=== PATIENT | female | born 1945 | race Caucasian/White ===

== ENCOUNTER 2021-06-28 12:38 | Inpatient (IN) | payer MEDICARE, OTHER ==
[~2021-06-28] VITALS: Ht 167.6 cm; Wt 134.7 kg
--- NOTE | 2021-06-28 12:48 | NUR ---
PT BIBRA FROM [facility] SEASONS C/O ABDOMINAL PAIN W/ NAUSEA AND VOMITING W/ NOTED FEVER X 2 DAYS. PT IS TACHYCARDIC AND DRY HEAVING METAL POLISHER. PLACED ON MONITOR SHOWING A FIB W/ RATE IN THE 140'S. PT DENIES CHEST PAIN. LOW GRADE NOTED METAL POLISHER. PT IS AAOX3 AWAITING MD MORENO.
--- NOTE | 2021-06-28 12:50 | NUR ---
DR PALMA AT BEDSIDE FOR EVAL.
[2021-06-28] MEDS ORDERED: ACETAMINOPHEN ES 500 MG TABLET ONE (12:52)
[2021-06-28] MEDS ORDERED: PIPERACILLIN /TAZOBACTAM 3.375 G in IV D5W 50 ML IV ONE (13:00)
[2021-06-28] MEDS ORDERED: VANCOMYCIN 1 GM in IV D5W 250 ML IV ONE (13:00)
[2021-06-28] MEDS ORDERED: IV NS 0.9% 1,000 ML BAG IV ONE (13:00)
[2021-06-28] MEDS ORDERED: ACETAMINOPHEN ES 500 MG TABLET PO ONE (13:00)
--- NOTE | 2021-06-28 13:00 | NUR ---
IV LINE STARTED BLOOD DRAWN AND SENT TO LAB.
[2021-06-28] MEDS ORDERED: VITA1TAB56 PO (13:10)
[2021-06-28] MEDS ORDERED: ACET-868 PO (13:10)
[2021-06-28] MEDS ORDERED: BISA10SU11 RC (13:10)
[2021-06-28] MEDS ORDERED: UBID100C13 PO (13:10)
[2021-06-28] MEDS ORDERED: INSU100V7 SQ (13:10)
[2021-06-28] MEDS ORDERED: PANT40TA2 PO (13:10)
[2021-06-28] MEDS ORDERED: SENN-261 PO (13:10)
[2021-06-28] MEDS ORDERED: MAGN400T26 PO (13:10)
[2021-06-28] MEDS ORDERED: CHOL100062 PO (13:10)
[2021-06-28] MEDS ORDERED: GABA-532 PO ×2 (13:10)
[2021-06-28] MEDS ORDERED: CRAN425C6 PO (13:10)
[2021-06-28] MEDS ORDERED: INSU100V39 SQ (13:10)
[2021-06-28] MEDS ORDERED: DOCU-141 PO ×2 (13:10)
[2021-06-28] MEDS ORDERED: HYDR-3980 PO (13:10)
[2021-06-28] MEDS ORDERED: OMEG-88 PO (13:10)
[2021-06-28] MEDS ORDERED: CALC1TAB30 PO (13:10)
[2021-06-28] MEDS ORDERED: NA P133E RC (13:10)
[2021-06-28] MEDS ORDERED: MAGN400O6 PO (13:10)
[2021-06-28] MEDS ORDERED: LIDO30AD10 TP (13:10)
[2021-06-28] MEDS ORDERED: NORT10CA PO (13:10)
[2021-06-28] MEDS ORDERED: PETR113O TP (13:10)
[2021-06-28] MEDS ORDERED: EVEN500C4 PO (13:10)
[2021-06-28 13:12] LABS: BASOPHILS % (AUTO) 0.3 % (0.0-2.0); HEMATOCRIT 45 % (33-45); HEMOGLOBIN 15.1 g/dL (11.5-14.8); LYMPHOCYTES # (AUTO) 0.7 K/uL (0.8-4.8); LYMPHOCYTES % (AUTO) 4.5 % (20.0-44.0); MEAN CORPUSCULAR HGB CONC 34 g/dl (31.0-36.0); MEAN CORPUSCULAR VOLUME 98 fL (82-100); MONOCYTES # (AUTO) 1.9 K/uL (0.1-1.30); MONOCYTES % (AUTO) 12.7 % (2.0-12.0); NEUTROPHILS # (AUTO) 12.1 K/uL (1.8-8.9); NEUTROPHILS % (AUTO) 82.5 % (43.0-81.0); PLATELET COUNT (AUTO) 212 K/uL (150-450); RED BLOOD CELL COUNT(AUTO) 4.58 MIL/uL (4.0-5.2); WHITE BLOOD COUNT (AUTO) 14.7 K/uL (4.3-11.0)
[2021-06-28 13:20] LABS: CALCIUM, SERUM 8.9 mg/dL (8.5-10.1); CREATININE 1.2 mg/dL (0.6-1.3); POTASSIUM 4.6 mmol/L (3.5-5.1)
[2021-06-28 13:34] LABS: ALBUMIN 2.9 g/dL (3.4-5.0); BILIRUBIN,DIRECT 0.3 mg/dL (0.0-0.2); BILIRUBIN,TOTAL 0.7 mg/dL (0.2-1.0); TOTAL PROTEIN, SERUM 8.3 g/dL (6.4-8.2)
[2021-06-28] MEDS ORDERED: BISACODYL SUPP (10 MG) 10 MG/SUPP.RECT SUPP.RECT RC PRN (14:00)
[2021-06-28] MEDS ORDERED: LIDOCAINE 5% (PATCH) 1 EA PATCH TP PRN (14:00)
[2021-06-28] MEDS ORDERED: MAG HYDROX/AL HYDROX/SIMETH 30 ML UDC PO PRN (14:00)
[2021-06-28] MEDS ORDERED: ENOXAPARIN SODIUM 40 MG/0.4 ML DISP.SYRIN SQ SCH (14:00)
[2021-06-28] MEDS ORDERED: MAGNESIUM HYDROXIDE 30 ML UDC PO PRN (14:00)
[2021-06-28] MEDS ORDERED: ACETAMINOPHEN 325 MG TABLET PO PRN ×2 (14:00)
[2021-06-28] MEDS ORDERED: LABETALOL 20 MG/4 ML VIAL IV PRN (14:00)
[2021-06-28] MEDS ORDERED: DEXTROSE 50%-WATER 50 ML DISP.SYRIN IV PRN (14:00)
[2021-06-28] MEDS ORDERED: Z GUARD REMEDY 2 OZ OINT TP PRN (14:00)
[2021-06-28 14:21] LABS: BILIRUBIN,URINE SMALL (NEGATIVE); COLOR,URINE YELLOW (YELLOW); LEUKOCYTE ESTERASE ,URINE Large (NEGATIVE); NITRITE, URINE Negative (NEGATIVE); PROTEIN,URINE 100 mg/dl (NEGATIVE); UGLUCOSE Negative (NEGATIVE); UROBILINOGEN,URINE 0.2 EU/dL (0.2)
[2021-06-28] MEDS ORDERED: METOPROLOL TARTRATE INJ 5 MG/5 ML AMPUL IVP PRN (14:30)
[2021-06-28] MEDS ORDERED: ENOXAPARIN SODIUM 40 MG/0.4 ML DISP.SYRIN SQ ONE (14:39)
[2021-06-28 14:40] LABS: BACTERIA,URINE Moderate /HPF (None Seen); RBC,URINE 21-50 /HPF (0-2); SQUAMOUS EPITHELIAL CELL,UR 0-2 /HPF (None Seen); WBC,URINE TOO NUMEROUS TO COUN /HPF (0-3)
[2021-06-28] MEDS ORDERED: ASPIRIN EC 325 MG TABLET.DR PO ONE (14:40)
[2021-06-28] MEDS ORDERED: METOPROLOL TARTRATE INJ 5 MG/5 ML AMPUL ONE (14:40)
[2021-06-28] MEDS: ASPIRIN EC 325 MG TABLET.DR PO SCH (14:55)
--- NOTE | 2021-06-28 15:19 | NUR ---
REPORT GIVEN TO SAPNA. PT AWAITING TRANSFER TO FLOOR.
[2021-06-28] MEDS: MEROPENEM 1 G in IV NS 0.9% 100 ML IV SCH ×2 (16:22→20:19)
[2021-06-28] MEDS: HEPARIN INFUSION/D5W 500 ML IV PRN (16:30)
[2021-06-28] MEDS: BLOOD SUGAR DIAGNOSTIC 1 EACH STRIP VI SCH ×2 (16:59→22:46)
[2021-06-28] MEDS ORDERED: NITROFURANTOIN/NITROFURAN MONOHYDRATE 100 MG CAPSULE PO SCH (17:00)
[2021-06-28] MEDS: INSULIN REGULAR, HUMAN 100 UNIT/ML 3 ML VIAL SQ PRN (17:22)
--- NOTE | 2021-06-28 17:57 | NUR ---
RN NOTE PATIENT REFUSING STRAIGHT CATHETER FOR URINE SAMPLE. EDUCATED PATIENT ON IMPORTANCE OF OBTAINING URINE SAMPLE. PATIENT STILL REFUSED.
--- NOTE | 2021-06-28 18:22 | NUR ---
RN NOTE NOTIFIED DR DALY OF HR IN THE 150s, NO NEW ORDERS.
--- NOTE | 2021-06-28 18:35 | NUR ---
RN CLOSING NOTE PATIENT IN BED, RECEIVED ON THE FLOOR FROM THE ER THIS AFTERNOON. A&O X4. R HAND IV IN PLACE. BED LOCKED AND IN LOWEST POSITION, CALL LIGHT WITHIN REACH, ALL SAFETY MEASURES IMPLEMENTED. WILL ENDORSE TO ART OBJECTS SALESPERSON NURSE.
--- NOTE | 2021-06-28 19:20 | NUR ---
RN NOTE RECEIVED PATIENT IN BED RESTING ALERT ORIENTED X4 VERBALLY RESPONSIVE ON 2L OXYGEN VIA NASAL CANNULA O2;96% ON HEPARIN DRIP 1200 UNIT/HR UNTIL NEXT PTT IS 23:00,IV SITE IS ON RIGHT HAND INTACT PATENT,INCONTINENT TO BOWEL/BLADDER SAFETY MEASURE IMPLEMENT CALL LIGHT WITHIN REACH,BED IN LOW POSITION AND LOCKED CONTINUE TO MONITOR.
[2021-06-28 20:00] VITALS: BP 159/115
--- NOTE | 2021-06-28 20:00 | NUR ---
RN NOTE PATIENT IS HR IS 150-152 PER PERVIOUS SHIFT THEY NOTIFIED DR PATI DALY CONTINUE TO MONITOR,TEMPERATURE IS 100.8
[2021-06-28] MEDS: HYDROCODONE/APAP 10/325MG TABLET PO PRN (20:44)
[2021-06-28] MEDS: GABAPENTIN 100 MG CAPSULE PO SCH (22:40)
[2021-06-28] MEDS: DOCUSATE SODIUM 100 MG CAPSULE PO SCH (22:40)
[2021-06-28] MEDS: INSULIN GLARGINE, 100 UNIT/ML CARTRIDGE SQ SCH (22:47)
--- NOTE | 2021-06-28 23:10 | NUR ---
2310 STOPPED HEPARIN INFUSION FOR aPTT 82.7 PER HEPARIN DRIP PROTOCOL.
[2021-06-28] MEDS ORDERED: NORTRIPTYLINE HCL 10 MG CAPSULE ONE (23:13)
[2021-06-28] MEDS: NORTRIPTYLINE HCL 10 MG CAPSULE PO SCH (23:18)
[2021-06-28] MEDS: *INSULIN REGULAR(HUMULIN R)HUM 100 UNIT/ML VIAL SQ PRN (23:33)
[2021-06-29] VITALS (39 sets, daily range): BP systolic 89–138; BP diastolic 43–97
[2021-06-29] MEDS ORDERED: AMIODARONE 150 MG/3 ML VIAL IV ONE ×2 (01:47→01:49)
[2021-06-29] MEDS ORDERED: AMIODARONE 150 MG in IV D5W 100 ML IV ONE (02:00)
[2021-06-29] MEDS ORDERED: AMIODARONE 450 MG in IV D5W 241 ML IV PRN (02:00)
--- NOTE | 2021-06-29 02:21 | NUR ---
RN NOTE PATIENT HR REMAINS 150-[address] MACHINE OPER[address] NOONAN AND RECEIVED ORDER FOR AMIODARONE DRIP NOTED AND CARRIED OUT CONTINUE TO MONITOR.
[2021-06-29 06:34] LABS: BASOPHILS % (AUTO) 0.2 % (0.0-2.0); HEMATOCRIT 42 % (33-45); HEMOGLOBIN 13.9 g/dL (11.5-14.8); LYMPHOCYTES # (AUTO) 0.9 K/uL (0.8-4.8); LYMPHOCYTES % (AUTO) 5.9 % (20.0-44.0); MEAN CORPUSCULAR HGB CONC 33 g/dl (31.0-36.0); MEAN CORPUSCULAR VOLUME 100 fL (82-100); MONOCYTES # (AUTO) 2.7 K/uL (0.1-1.30); MONOCYTES % (AUTO) 18.2 % (2.0-12.0); NEUTROPHILS # (AUTO) 11.3 K/uL (1.8-8.9); NEUTROPHILS % (AUTO) 75.7 % (43.0-81.0); PLATELET COUNT (AUTO) 172 K/uL (150-450); RED BLOOD CELL COUNT(AUTO) 4.17 MIL/uL (4.0-5.2); WHITE BLOOD COUNT (AUTO) 14.9 K/uL (4.3-11.0)
[2021-06-29 06:53] LABS: ALBUMIN 2.3 g/dL (3.4-5.0); BILIRUBIN,TOTAL 0.7 mg/dL (0.2-1.0); CALCIUM, SERUM 8.3 mg/dL (8.5-10.1); CREATININE 1.2 mg/dL (0.6-1.3); MAGNESIUM 2.2 mg/dL (1.8-2.4); PHOSPHORUS 3.7 mg/dL (2.5-4.9); TOTAL PROTEIN, SERUM 7.3 g/dL (6.4-8.2)
[2021-06-29 06:58] LABS: THYROID STIMULATING HORMONE 0.36 uIU/mL (0.358-3.74)
--- NOTE | 2021-06-29 07:00 | NUR ---
RN NOTES 0700 - APTT 64. NO CHANGE TO HEPARIN DRIP RATE.
--- NOTE | 2021-06-29 07:22 | NUR ---
RN NOTE PATIENT REMAINS ON ALERT ORIENTEDX4 VERBALLY RESPONSIVE ON 4L OXYGEN VIA NASAL CANNULA, O2:99% ON HEPARIN DRIP 1000 UNIT/HR PTT DRAWN STILL IS PENDING,ON AMIODARONE DRIP 1MG,HR 150 AFIB ALL DUE MEDS GIVEN HEAD OF THE BED ELEVATED REPOSITIONED EVERY 2 HOURS KEPT CLEAN AND DRY ALL THE TIME ALL NEEDS MET,ENDORSE NEXT COMING SHIFT FOR CONTINUATION OF CARE.
--- NOTE | 2021-06-29 07:30 | NUR ---
BLAIR RN AM NOTE RECEIVED PATIENT IN BED, AWAKE, ALERT X 4, ON 4L O2 NASAL CANULA, O2 SAT 96%, RESPIRATION UNLABORED, AFIB HR 147 ON MONITOR, MD AWARE, WAITING FOR DR. ARGUETA. DENIES PAIN OR DISCOMFORT AT THIS TIME, ONGOING AMIODARONE DRIP AT 1MG/MIN [33.3 ML/HR] TO LEFT HAND. SITE CLEAR. ON HEPARIN DRIP 1000 UNIT/HR UNTIL NEXT PTT IS 0500. ON RIGHT HAND INTACT PATENT,INCONTINENT TO BOWEL/BLADDER SEE NURSING FLOWSHEET FOR SKIN ISSUES. FOR WOUND CARE CONSULT. SAFETY MEASURE IMPLEMENT CALL LIGHT WITHIN REACH,BED IN LOW POSITION AND LOCKED CONTINUE TO MONITOR.
--- NOTE | 2021-06-29 08:30 | NUR ---
RN NOTES AMIODARONE DRIP RATE CHANGED TO 0.5 MG/MIN [16.6 ML/HR] X 16 HOURS.
[2021-06-29] MEDS: PANTOPRAZOLE 40 MG TABLET.DR PO SCH (08:36)
[2021-06-29] MEDS: BLOOD SUGAR DIAGNOSTIC 1 EACH STRIP VI SCH ×4 (08:36→21:45)
[2021-06-29] MEDS ORDERED: EVENING PRIMROSE OIL 500 MG PO SCH (09:00)
[2021-06-29] MEDS: INSULIN REGULAR, HUMAN 100 UNIT/ML 3 ML VIAL SQ PRN ×3 (09:05→17:28)
[2021-06-29] MEDS: CHOLECALCIFEROL 1,000 UNIT TABLET (VIT D3) PO SCH (09:08)
[2021-06-29] MEDS: GABAPENTIN 100 MG CAPSULE PO SCH ×3 (09:08→21:06)
[2021-06-29] MEDS: MEROPENEM 1 G in IV NS 0.9% 100 ML IV SCH ×2 (09:08→21:04)
[2021-06-29] MEDS: DOCUSATE SODIUM 100 MG CAPSULE PO SCH ×2 (09:09→21:05)
[2021-06-29] MEDS: ASPIRIN EC 325 MG TABLET.DR PO SCH (09:10)
--- NOTE | 2021-06-29 09:30 | NUR ---
RN NOTES DUE MEDS GIVEN
[2021-06-29] MEDS: GLUCERNA SHAKE 237 ML CAN PO SCH (10:01)
[2021-06-29 10:06] LABS: LYMPHOCYTES % (MANUAL) 4 % (16-48); MONOCYTES % (MANUAL) 15 % (0-11.0); NEUTROPHILS % (MANUAL) 81 (42-76)
--- NOTE | 2021-06-29 10:54 | NUR ---
RN CATALINA ARGUETA AT BEDSIDE.NEW ORDERS DC AMIODARONE DRIP AND CHANGE TO CARDIZEM DRIP TITRATE, SEND TO ICU. CHARGE NURSE AWARE. NURSING CIGARETTE MACHINE FILLER INFORMED FOR ICU BED.
[2021-06-29] MEDS: METOPROLOL TARTRATE 25 MG TABLET PO SCH ×2 (11:28→21:05)
[2021-06-29] MEDS: FUROSEMIDE 20 MG/2 ML VIAL IV SCH ×2 (11:28→16:02)
--- NOTE | 2021-06-29 11:35 | NUR ---
RN NOTES PATIENT TRANSFERRED TO ICU 254. BEDSIDE REPORT GIVEN TO ANN WESTBROOK.
--- NOTE | 2021-06-29 12:00 | NUR ---
[employer] FARMER FRUIT CROPS NOTE PATIENT TRANSFERRED TO ICU ALERT ORIENTED , ON TELE MONITOR AFIB HR 152 , NO C\O CHEST PAIN , RT HAND HL INTACT AND ON HEPARIN DRIP ORDERED, LT HAND IB HL IS NOT WORKING WELL BED IN LOWEST AND LOCKED POSITION SKIN WARM BUT VERY PERSPIRING , COMFORT MEASURE PROVIDED
[2021-06-29] MEDS: DILTIAZEM HCL IV 125 MG in IV NS 0.9% 100 ML IV PRN ×2 (12:21→23:27)
[2021-06-29] MEDS ORDERED: DILTIAZEM HCL 50 MG IV IV ONE (12:30)
--- NOTE | 2021-06-29 13:00 | NUR ---
FRUIT HARVEST MACHINE OPERATOR NOTE UNABLE TO START CARDIZEM DRIP DUE TO UNABLE TO INSERT IV HL , CHARGE NURSE AND NURSING LEHR ATTENDANT NOTIFIED , CALLED FOR MID LINE NURSE TO INSERT , WILL F\U
--- NOTE | 2021-06-29 13:30 | NUR ---
[place] HISTORY PROFESSOR NOTE CALLED TO DR BAUTISTA RESPIRATORY TECH NOTIFIED THAT PATIENT ON HEPARIN DRIP AND LOVENOX SQ ,ORDERED STOP LOVENOX , ORDER CARRIED OUT
[2021-06-29] MEDS: HEPARIN INFUSION/D5W 500 ML IV PRN (13:45)
--- NOTE | 2021-06-29 14:00 | NUR ---
agriculture internship note dr Leoncio Coulter at bedside inserted mid line double lumen on lt upper arm .tim start Cardizem soon
--- NOTE | 2021-06-29 14:25 | NUR ---
ASPHALT STILL OPERATOR NOTE STARTED CARDIZEM DRIP ORDERED
--- NOTE | 2021-06-29 14:58 | NUR ---
METAL BONDING WORKER NOTE HR AFIB 129 , PER DR ORDER OK TO INCREASE CARDIZEM DRIP UP TO 10 MG -HOUR , WILL MONITOR
--- NOTE | 2021-06-29 18:33 | NUR ---
SHOPPER INSIGHTS MANAGER NOTE HR STILL AFIB 122 NO C\O CHEST PAIN ,NO SOB NOTED, TITRATED CARDIZEM DRIP AT 15 MG\HOUR PER DR ORDER AND PROTOCOL , ON HEPARIN DRIP AT 1000 UNIT PER HOUR ORDERED AND PROTOCOL WILL DO PTT IN AM , REUSED TI EAT DINNER AT THIS TIME SAYING WILL EAT LATTER, LT UPPER ARM DOUBLE LUMEN MID LINE IN PLACE AND FLUSHED WELL , BED IN LOWEST AND LOCKED POSITION , CALL LIGHT WITHIN REACH, WILL CONT TO MONITOR
--- NOTE | 2021-06-29 19:30 | NUR ---
RN OPENING NOTES: RECEIVED PT A/OX4 IN BED IN NO S/SX OF ACUTE DISTRESS AT THIS TIME. NO SOB NOTED. PATIENT'S BREATHING IS EVEN AND UNLABORED. PATIENT IS ON 4L OF OXYGEN VIA NC; TOLERATING WELL. PATIENT ON TELE MONITORING READING AFLUTTER HR IS @120s AT THE TIME OF RECEIVED. PATIENT ON CCHO DIET; TOLERATES WELL. NOTED IV SITE ON L UA MIDLINE 2 LUMEN AND R HAND #20; BOTH PATENT, INTACT AND FLUSHING WELL; NO S/S OF INFECTION OR INFILTRATION. PT HAS A RUNNING HEPARIN DRIP @1000UNITS/HR (20MLS/HR) PER NON ACS PROTOCOL ORDERED. ALSO AT THE TIME OF RECEIVED PT HAS A RUNNING CARDIZEM DRIP @15MG/HR (15MLS/HR) MONITORED AND TITRATED PER PROTOCOL. SAFETY MEASURES HAVE BEEN PROVIDED AND IMPLEMENTED. PATIENT BED ALARM IS ON. HEAD OF BED ELEVATED. BED IS LOCKED, IN LOWEST POSITION AND SIDE RAILS UP. CALL LIGHT WITHIN REACH OF THE PATIENT. APPLICABLE ISOLATION PRECAUTIONS IN PLACE. WILL CONTINUE TO MONITOR AND REASSESS FOR ANY CHANGES AND WILL CARRY OUT ANY ONGOING AND ACTIVE MD ORDER.
[2021-06-29] MEDS: NORTRIPTYLINE HCL 10 MG CAPSULE PO SCH (21:06)
[2021-06-29] MEDS: INSULIN GLARGINE, 100 UNIT/ML CARTRIDGE SQ SCH (21:38)
[2021-06-29] MEDS: *INSULIN REGULAR(HUMULIN R)HUM 100 UNIT/ML VIAL SQ PRN (21:43)
[2021-06-30] VITALS (48 sets, daily range): BP systolic 109–162; BP diastolic 43–94
--- NOTE | 2021-06-30 | NUR ---
RN NOTES PATIENT REMAINED TO BE IN NO SIGNS OF ACUTE RESPIRATORY DISTRESS , VITAL SIGNS WNL AT THIS TIME. WILL CONTINUE TO MONITOR AND REASSESS FOR ANY CHANGES THROUGHOUT THE SHIFT.
--- NOTE | 2021-06-30 04:00 | NUR ---
RN NOTES NO NOTED CHANGES IN PATIENT CONDITION AT THIS TIME; PATIENT VITALS STABLE, NO SIGNS OF ACUTE RESPIRATORY DISTRESS. AM PATIENT CARE RENDERED.WILL CONTINUE TO MONITOR AND REASSESS FOR ANY CHANGES THROUGHOUT THE SHIFT.
[2021-06-30 04:25] LABS: BASOPHILS % (AUTO) 0.2 % (0.0-2.0); EOSINOPHILS % (AUTO) 0.9 % (0.0-6.0); HEMATOCRIT 41 % (33-45); LYMPHOCYTES # (AUTO) 1.2 K/uL (0.8-4.8); LYMPHOCYTES % (AUTO) 12.1 % (20.0-44.0); MEAN CORPUSCULAR HGB CONC 34 g/dl (31.0-36.0); MEAN CORPUSCULAR VOLUME 98 fL (82-100); MONOCYTES # (AUTO) 2.1 K/uL (0.1-1.30); MONOCYTES % (AUTO) 21.9 % (2.0-12.0); NEUTROPHILS # (AUTO) 6.3 K/uL (1.8-8.9); NEUTROPHILS % (AUTO) 64.9 % (43.0-81.0); PLATELET COUNT (AUTO) 202 K/uL (150-450); RED BLOOD CELL COUNT(AUTO) 4.21 MIL/uL (4.0-5.2); WHITE BLOOD COUNT (AUTO) 9.6 K/uL (4.3-11.0)
[2021-06-30 04:48] LABS: BAND % (MANUAL) 5 % (0.0-5.0); NEUTROPHILS % (MANUAL) 61 (42-76)
[2021-06-30 04:49] LABS: LYMPHOCYTES % (MANUAL) 16 % (16-48); MONOCYTES % (MANUAL) 18 % (0-11.0)
[2021-06-30 04:53] LABS: ALANINE AMINOTRANSFERASE 38 U/L (12-78); ALBUMIN 2.4 g/dL (3.4-5.0); ALKALINE PHOSPHATASE 67 U/L (46-116); ASPARTATE AMINOTRANSFERASE 34 U/L (15-37); BILIRUBIN,TOTAL 0.4 mg/dL (0.2-1.0); CALCIUM, SERUM 8.4 mg/dL (8.5-10.1); CARBON DIOXIDE 27 mmol/L (21-32); CHLORIDE 98 mmol/L (98-107); CREATININE 1.1 mg/dL (0.6-1.3); GLUCOSE 149 mg/dL (74-106); MAGNESIUM 2.1 mg/dL (1.8-2.4); PHOSPHORUS 3.6 mg/dL (2.5-4.9); SODIUM SERUM 133 mmol/L (136-145); TOTAL PROTEIN, SERUM 7.2 g/dL (6.4-8.2); UREA NITROGEN, BLOOD 34 mg/dL (7-18)
[2021-06-30] MEDS: DILTIAZEM HCL IV 125 MG in IV NS 0.9% 100 ML IV PRN ×2 (05:22→06:24)
--- NOTE | 2021-06-30 05:51 | NUR ---
RN NOTES APTT: 34.8; PER WEIGHT BASED HEPARIN PROTOCO (NON ACS) BY THE CRITERIA OF : >95KG, BOLUS 6000U & INCREASE RATE BY 300 U/HR TOTAL OF 1300U/HR TO BE GIVEN. REPEAT APTT AFTER 6HOURS UPON ADJUSTMENT. TAX SERVICES MANAGER MADE AWARE. WILL ENDORSE CHANGES TO AM SHIFT.
[2021-06-30] MEDS ORDERED: HEPARIN SODIUM, PORCINE 5000 UNITS/1 ML VIAL IV ONE (06:00)
--- NOTE | 2021-06-30 06:50 | NUR ---
RN CLOSING NOTE: PATIENT REMAINS IN ROOM IN NO SIGNS OF RESPIRATORY DISTRESS, PATIENT STILL ON 4L OF O2 VIA NC;TOLERATING WELL SATURATING @ >90% SP02. SAFETY MEASURES IMPLEMENTED, BED IN LOWEST POSITION, LOCKED, SIDE RAILS UP, CALL LIGHT WITHIN REACH. ALL NEEDS AND ORDERS ADDRESSED DURING THE SHIFT. IV ACCESS MAINTAINED INTACT, SECURED AND FLUSHING WELL. ALL DUE MEDS GIVEN ORDERED & SCHEDULED ; PATIENT TOLERATED WELL. STILL WITH ONGOING DRIP FOLLOWS: HEPARIN DRIP @1300UNITS/HR PER NON ACS PROTOCOL ORDERED AND CARDIZEM DRIP @15MG/HR (15MLS/HR) BOTH RUNNING, MONITORED AND ADJUSTED PER PROTOCOL. PATIENT KEPT CLEAN AND COMFORTABLE WITHIN THE SHIFT. PATIENT ENDORSED TO INCOMING SHIFT RN WITH STABLE VITAL SIGN AND FOR CONTINUITY OF CARE.
--- NOTE | 2021-06-30 07:30 | NUR ---
RN NOTE PATIENT OBSERVED ASLEEP IN BRED, ON O2 VIA NC @2LPM BREATHING EVEN AND UNLABORED, O2 SAT OF 98%, ON TELE MONITOR A-FIB/AFLUTTER NOTED, ON CARDIZEM DRIP RUNNING AT 15MG/HR, HEPARIN DRIP AT 1300UNITS/HR NEXT APTT IS AT 12NOON IV INFUSING WELL, BED WHEELS LOCK, CALL LIGHT WITHIN REACH, SAFETY MEASURE OBSERVED CALL LIGHT WITHIN REACH.
--- NOTE | 2021-06-30 07:50 | NUR ---
RN NOTE ASSISTED PATIENT TO REPOSITION AT BED, PATIENT DOES NOT WANT TO EAT BREAKFAST AT THIS TIME, MEDICATION GIVEN ORDERED.
[2021-06-30] MEDS: FUROSEMIDE 20 MG/2 ML VIAL IV SCH ×2 (08:11→17:19)
[2021-06-30] MEDS: PANTOPRAZOLE 40 MG TABLET.DR PO SCH (08:12)
[2021-06-30] MEDS: DOCUSATE SODIUM 100 MG CAPSULE PO SCH ×2 (08:12→21:02)
[2021-06-30] MEDS: CHOLECALCIFEROL 1,000 UNIT TABLET (VIT D3) PO SCH (08:12)
[2021-06-30] MEDS: GABAPENTIN 100 MG CAPSULE PO SCH ×3 (08:12→21:02)
[2021-06-30] MEDS: METOPROLOL TARTRATE 25 MG TABLET PO SCH ×2 (08:13→20:48)
[2021-06-30] MEDS: BLOOD SUGAR DIAGNOSTIC 1 EACH STRIP VI SCH ×4 (08:13→21:17)
[2021-06-30] MEDS: MEROPENEM 1 G in IV NS 0.9% 100 ML IV SCH ×2 (08:26→20:47)
[2021-06-30] MEDS: *INSULIN REGULAR(HUMULIN R)HUM 100 UNIT/ML VIAL SQ PRN ×2 (08:26→21:28)
[2021-06-30] MEDS: GLUCERNA SHAKE 237 ML CAN PO SCH (08:30)
[2021-06-30] MEDS: ASPIRIN EC 81 MG TABLET.DR PO SCH (09:29)
--- NOTE | 2021-06-30 11:00 | NUR ---
RN NOTE PATIENT SEEN BY DR. MICHAEL, NOTIFIED MD OF PATIENT SODIUM LEVEL OF 133, NO NEW ORDER AT THIS TIME.
[2021-06-30] MEDS ORDERED: DIGOXIN INJ 0.5 MG/2 ML AMPUL IV ONE (12:00)
--- NOTE | 2021-06-30 12:00 | NUR ---
RN NOTE PATIENT CONVERTED FROM A-FIB/AFLUTTER TO SR, DISCONTINUE HEPARIN AND CARDIZEM PER DR. ARGUETA.
[2021-06-30] MEDS: ENOXAPARIN SODIUM 120 MG/0.8 ML DISP.SYRIN SQ SCH ×2 (12:31→20:54)
[2021-06-30] MEDS: INSULIN REGULAR, HUMAN 100 UNIT/ML 3 ML VIAL SQ PRN ×2 (12:42→17:17)
[2021-06-30] MEDS: hydrALAZINE HCL IV 20 MG VIAL IV PRN ×2 (15:05→22:46)
--- NOTE | 2021-06-30 17:27 | NUR ---
RN NOTE PATIENT ADL CARE DONE WITH TWO PERSON ASSIST.
--- NOTE | 2021-06-30 19:11 | NUR ---
RN NOTE DR. ARGUETA NOTIFIED THAT PATIENT CONVERTED TO AFLUTTER. WAITING FURTHER ORDER ENDORSE TO NOC SHIFT.
--- NOTE | 2021-06-30 19:12 | NUR ---
RN NOTE PATIENT OBSERVED ASLEEP IN BRED, ON O2 VIA NC @2LPM BREATHING EVEN AND UNLABORED, O2 SAT OF 98%, ON TELE MONITOR AFLUTTER NOTED MD NOTIFIED, BED WHEELS LOCK, CALL LIGHT WITHIN REACH, SAFETY MEASURE OBSERVED CALL LIGHT WITHIN REACH. WILL ENDORSE TO NOC SHIFT.
--- NOTE | 2021-06-30 19:30 | NUR ---
RN OPENING NOTES: RECEIVED PT A/OX4 IN BED IN NO S/SX OF ACUTE DISTRESS AT THIS TIME. NO SOB NOTED. PATIENT'S BREATHING IS EVEN AND UNLABORED. PATIENT IS ON 4L OF OXYGEN VIA NC; TOLERATING WELL. PATIENT ON TELE MONITORING READING AFLUTTER HR IS @100s AT THE TIME OF RECEIVED. PATIENT ON CCHO DIET; TOLERATES WELL. NOTED IV SITE ON L UA MIDLINE 2 LUMEN PATENT, INTACT AND FLUSHING WELL; NO S/S OF INFECTION OR INFILTRATION. SAFETY MEASURES HAVE BEEN PROVIDED AND IMPLEMENTED. PATIENT BED ALARM IS ON. HEAD OF BED ELEVATED. BED IS LOCKED, IN LOWEST POSITION AND SIDE RAILS UP. CALL LIGHT WITHIN REACH OF THE PATIENT. APPLICABLE ISOLATION PRECAUTIONS IN PLACE. WILL CONTINUE TO MONITOR AND REASSESS FOR ANY CHANGES AND WILL CARRY OUT ANY ONGOING AND ACTIVE MD ORDER.
--- NOTE | 2021-06-30 20:33 | NUR ---
RN NOTES NO NEW ORDERS FROM DR. ARGUETA; REGARDING THE INFORMED INFO FROM AM SHIFT ABOUT PT CONVERTING TO AFLUTTER AT THE END OF SHIFT. CURRENT HR AT 90s. RHYTHM SR WITH INVERTED T-WAVES. MD ACKNOWLEDGED. SAMPLE MAKER MADE AWARE.
[2021-06-30] MEDS: ONDANSETRON HCL/PF 4 MG/2 ML VIAL IVP PRN (20:55)
[2021-06-30] MEDS: NORTRIPTYLINE HCL 10 MG CAPSULE PO SCH (21:02)
[2021-06-30] MEDS: INSULIN GLARGINE, 100 UNIT/ML CARTRIDGE SQ SCH (21:28)
--- NOTE | 2021-06-30 22:45 | NUR ---
RN NOTES NOTED PT'S SBP GOING >160; PRN HYDRALAZINE GIVEN PER INDICATION. WILL CONTINUE TO MONITOR AND ASSESS THROUGHOUT THE SHIFT. WILL REEVALUATE IN 30-45MINS. IRRIGATOR SPRINKLING SYSTEM MADE AWARE. Addendum: 06/30/21 at 2344 by SHERRON ENCARNACION RN @2330- PT'S BP IS AT 138/76 HR IS 99; WILL CONTINUE TO MONITOR AND ASSESS THROUGHOUT THE SHIFT.
[2021-07-01] VITALS (34 sets, daily range): BP systolic 119–164; BP diastolic 65–99
[2021-07-01 04:32] LABS: BASOPHILS % (AUTO) 0.4 % (0.0-2.0); EOSINOPHILS % (AUTO) 1.5 % (0.0-6.0); HEMATOCRIT 42 % (33-45); LYMPHOCYTES # (AUTO) 1.1 K/uL (0.8-4.8); LYMPHOCYTES % (AUTO) 13.1 % (20.0-44.0); MEAN CORPUSCULAR HGB CONC 34 g/dl (31.0-36.0); MEAN CORPUSCULAR VOLUME 98 fL (82-100); MONOCYTES # (AUTO) 1.5 K/uL (0.1-1.30); MONOCYTES % (AUTO) 18.7 % (2.0-12.0); NEUTROPHILS # (AUTO) 5.4 K/uL (1.8-8.9); NEUTROPHILS % (AUTO) 66.3 % (43.0-81.0); PLATELET COUNT (AUTO) 251 K/uL (150-450); RED BLOOD CELL COUNT(AUTO) 4.24 MIL/uL (4.0-5.2); WHITE BLOOD COUNT (AUTO) 8.1 K/uL (4.3-11.0)
[2021-07-01 04:45] LABS: ALANINE AMINOTRANSFERASE 50 U/L (12-78); ALBUMIN 2.4 g/dL (3.4-5.0); ALKALINE PHOSPHATASE 71 U/L (46-116); ASPARTATE AMINOTRANSFERASE 43 U/L (15-37); BILIRUBIN,TOTAL 0.4 mg/dL (0.2-1.0); CALCIUM, SERUM 8.5 mg/dL (8.5-10.1); CARBON DIOXIDE 30 mmol/L (21-32); CHLORIDE 98 mmol/L (98-107); CREATININE 0.8 mg/dL (0.6-1.3); GLUCOSE 150 mg/dL (74-106); MAGNESIUM 1.9 mg/dL (1.8-2.4); PHOSPHORUS 3.1 mg/dL (2.5-4.9); POTASSIUM 3.7 mmol/L (3.5-5.1); SODIUM SERUM 134 mmol/L (136-145); TOTAL PROTEIN, SERUM 7.4 g/dL (6.4-8.2); UREA NITROGEN, BLOOD 26 mg/dL (7-18)
[2021-07-01 05:46] LABS: BAND % (MANUAL) 2 % (0.0-5.0); EOSINOPHILS % (MANUAL) 2 % (0-4); LYMPHOCYTES % (MANUAL) 10 % (16-48); MONOCYTES % (MANUAL) 21 % (0-11.0); NEUTROPHILS % (MANUAL) 64 (42-76); REACTIVE LYMPHOCYTES 1 % (0-0)
--- NOTE | 2021-07-01 06:42 | NUR ---
RN CLOSING NOTE: PATIENT REMAINS IN ROOM IN NO SIGNS OF RESPIRATORY DISTRESS, PATIENT STILL ON 4L OF O2 VIA NC;TOLERATING WELL SATURATING @ >95% SP02. SAFETY MEASURES IMPLEMENTED, BED IN LOWEST POSITION, LOCKED, SIDE RAILS UP, CALL LIGHT WITHIN REACH. ALL NEEDS AND ORDERS ADDRESSED DURING THE SHIFT. IV ACCESS MAINTAINED INTACT, SECURED AND FLUSHING WELL. ALL DUE MEDS GIVEN ORDERED & SCHEDULED ; PATIENT TOLERATED WELL. PATIENT KEPT CLEAN & COMFORTABLE WITHIN THE SHIFT. PATIENT ENDORSED TO INCOMING SHIFT RN WITH STABLE VITAL SIGN AND FOR CONTINUITY OF CARE.
--- NOTE | 2021-07-01 07:30 | NUR ---
WORKERS COMPENSATION EXAMINER OPENING NOTES Patient received in bed asleep, on o2 4lpm via n/c with 02 sat of 98%. Noted with left upper arm midline saline lock. HOB kept elevated. Will continue to monitor. Call light with in reach. Bed is in lowest and locked position.
[2021-07-01] MEDS: BLOOD SUGAR DIAGNOSTIC 1 EACH STRIP VI SCH ×4 (07:54→22:03)
[2021-07-01] MEDS: INSULIN REGULAR, HUMAN 100 UNIT/ML 3 ML VIAL SQ PRN ×2 (07:55→18:14)
[2021-07-01] MEDS: DOCUSATE SODIUM 100 MG CAPSULE PO SCH ×2 (08:52→21:37)
[2021-07-01] MEDS: CHOLECALCIFEROL 1,000 UNIT TABLET (VIT D3) PO SCH (08:52)
[2021-07-01] MEDS: GABAPENTIN 100 MG CAPSULE PO SCH ×3 (08:52→21:45)
[2021-07-01] MEDS: PANTOPRAZOLE 40 MG TABLET.DR PO SCH (08:52)
[2021-07-01] MEDS: ASPIRIN EC 81 MG TABLET.DR PO SCH (08:52)
[2021-07-01] MEDS: FUROSEMIDE 20 MG/2 ML VIAL IV SCH ×2 (08:52→17:36)
[2021-07-01] MEDS: METOPROLOL TARTRATE 25 MG TABLET PO SCH ×2 (08:53→21:46)
[2021-07-01] MEDS: MEROPENEM 1 G in IV NS 0.9% 100 ML IV SCH ×2 (08:53→21:36)
[2021-07-01] MEDS: GLUCERNA SHAKE 237 ML CAN PO SCH (09:08)
[2021-07-01] MEDS: ENOXAPARIN SODIUM 120 MG/0.8 ML DISP.SYRIN SQ SCH ×2 (09:15→21:47)
--- NOTE | 2021-07-01 10:58 | NUR ---
Converted to afib at 1052 am.
--- NOTE | 2021-07-01 11:00 | NUR ---
Patient's cardiac rhytm converted to afib. Dr Teagan zamora.
[2021-07-01] MEDS ORDERED: AMIODARONE 150 MG in IV D5W 100 ML IV ONE (11:30)
--- NOTE | 2021-07-01 11:30 | NUR ---
Started bolus and patient converted to Sinus. Bolus running. No c/o chest pain.
--- NOTE | 2021-07-01 11:52 | NUR ---
Per dr hussein to start amio drip for next 6 hour and then decrease it to half dose for next 18 hours. Patient started amio drip running 33.333 ml/hour. Sinus rhytm noted.
[2021-07-01] MEDS: AMIODARONE 450 MG in IV D5W 241 ML IV PRN ×2 (11:53→18:32)
--- NOTE | 2021-07-01 13:00 | NUR ---
Patient refused her lunch and insulin not given due to patient not eating.
--- NOTE | 2021-07-01 16:00 | NUR ---
Snowden cath inserted per MD Wilson orders to monitor intake and output
--- NOTE | 2021-07-01 18:00 | NUR ---
Amio drip decreased to 16.66 ml/hour after six hours. Patient noted with no s/s of caridac distress. Eating dinner.
--- NOTE | 2021-07-01 19:07 | NUR ---
DECALER CLOSING NOTES Patient in bed awake , on o2 4lpm via n/c with 02 sat of 99%. Noted with left upper arm midline running amio drip at 26.66 ml/hour or 0.5 mg. Patient currently showing sinus rhytm with PAC on tele monitor. Snowden cath intact and hanging to gravity with clear yellow urine and output of 1400 cc during shift.. HOB kept elevated. Will continue to monitor. Call light with in reach. Bed is in lowest and locked position.Will endorse to next shift for VALERIE.
--- NOTE | 2021-07-01 19:35 | NUR ---
RN NOTES RECEIVED PATIENT AWAKE RESTING ON BED. BREATHING EVEN AND UNLABORED. ON O2 4LPM VIA NC SATURATION 93%. PATIENT IS AOX4 VERBALIZING CONCERN. SR WITH INVERTED T WAVE ON MONITOR. DENIES ANY CHEST PAIN OR DIZZINESS. PATIENT IS C/O PAIN ON HER BACK PER PATIENT SHE HAS CHRONIC PAIN. ENCOURAGED TO REPOSITION WHILE ON BED NOT EFFECTIVE AT THIS TIME, CHAD PRIMITIVOCLAUDINE REST IN THE SAME POSITION. IV SITE ON LEFT UPPER ARM MIDLINE INTACT RUNNING WITH AMIODARONE DRIP AT16.667 ML/HR INTACT AND PATENT. KENDRICK CATH KEPT IN PLACED AND SECURED. OFF FROM THE FLOOR. KEPT PT CLEAN AND COMFORTABLE IN BED. CALL LIGHT INSTRUCTED TO USED FOR ASSISTANCE. WILL CONTINUE TO MONITOR.
[2021-07-01] MEDS: HYDROCODONE/APAP 10/325MG TABLET PO PRN (19:46)
[2021-07-01] MEDS: NORTRIPTYLINE HCL 10 MG CAPSULE PO SCH (21:45)
--- NOTE | 2021-07-01 22:00 | NUR ---
RN NOTES ENCOURAGED AND OFFERED TO TURN AND REPOSITION WHILE ON BED. PATIENT REFUSED TO GET TURN STATED THAT SHE DIDN'T FEEL COMFORTABLE BECAUSE OF HER BOTH HIPS. RISK AND BENEFITS EXPLAINED PATIENT IS WELL AWARE BUT DOESN'T WANT TO GET TURN. PATIENT IS AOX3. ENCOURAGED TO CALL WHEN READY TO GET TURN. ALL DUE MEDS ADMINISTERED AND TOLERATED WELL.
[2021-07-01] MEDS: INSULIN GLARGINE, 100 UNIT/ML CARTRIDGE SQ SCH (22:01)
[2021-07-01] MEDS: *INSULIN REGULAR(HUMULIN R)HUM 100 UNIT/ML VIAL SQ PRN (22:02)
[2021-07-02] VITALS (33 sets, daily range): BP systolic 110–140; BP diastolic 66–85
[2021-07-02 04:22] LABS: BASOPHILS % (AUTO) 0.5 % (0.0-2.0); EOSINOPHILS % (AUTO) 2.4 % (0.0-6.0); HEMATOCRIT 40 % (33-45); HEMOGLOBIN 13.5 g/dL (11.5-14.8); LYMPHOCYTES # (AUTO) 1.4 K/uL (0.8-4.8); LYMPHOCYTES % (AUTO) 19.2 % (20.0-44.0); MEAN CORPUSCULAR HGB CONC 34 g/dl (31.0-36.0); MEAN CORPUSCULAR VOLUME 98 fL (82-100); MONOCYTES # (AUTO) 1.4 K/uL (0.1-1.30); MONOCYTES % (AUTO) 18.3 % (2.0-12.0); NEUTROPHILS # (AUTO) 4.4 K/uL (1.8-8.9); NEUTROPHILS % (AUTO) 59.6 % (43.0-81.0); PLATELET COUNT (AUTO) 274 K/uL (150-450); RED BLOOD CELL COUNT(AUTO) 4.11 MIL/uL (4.0-5.2); WHITE BLOOD COUNT (AUTO) 7.5 K/uL (4.3-11.0)
[2021-07-02 04:37] LABS: ALBUMIN 2.3 g/dL (3.4-5.0); BILIRUBIN,TOTAL 0.4 mg/dL (0.2-1.0); CALCIUM, SERUM 8.3 mg/dL (8.5-10.1); CREATININE 0.9 mg/dL (0.6-1.3); MAGNESIUM 2.1 mg/dL (1.8-2.4); PHOSPHORUS 3.6 mg/dL (2.5-4.9); POTASSIUM 3.7 mmol/L (3.5-5.1)
[2021-07-02 05:26] LABS: EOSINOPHILS % (MANUAL) 4 % (0-4); LYMPHOCYTES % (MANUAL) 14 % (16-48); MONOCYTES % (MANUAL) 17 % (0-11.0); NEUTROPHILS % (MANUAL) 65 (42-76)
--- NOTE | 2021-07-02 06:42 | NUR ---
RN NOTES PATIENT ASLEEP WELL. NO SOB OR RESP DISTRESS TOLERATED O2 4LPM VIA NC. SATURATION 98-100%. AFEBRILE. VSS. SINUS RHYTHM WITH INVERTED T WAVE ON MONITOR. CONTINUE ON AMIODARONE DRIP AT 0.5 MG/MIN WILL END AT 12NOON. IV SITE REMAINED INTACT AND PATENT. NO SIGNIFICANT CHANGES NOTED. PAIN MEDICINE EFFECTIVE. KEPT PT CLEAN AND COMFORTABLE IN BED. CALL LIGHT PROMPTLY ATTENDED. KENDRICK CATH DRAINED WELL WITH GOOD URINE OUTPUT. WILL CONTINUE POC WILL ENDORSED TO AM NURSE FOR CONTINUITY OF CARE.
--- NOTE | 2021-07-02 07:30 | NUR ---
RN NOTES PT FOUND SLEEPING IN SEMI FOWLERS POSITION DISPLAYING NO S/S OF DISTRESS, FLACC = 0 AND BREATHING IS EVEN AND UNLABORED ON 4L O2 NC. PT ON THE MONITOR READING INVERTED T WAVES. AMIODARONE DROP RUNNING WITHOUT INTERRUPTION. PICC IS PATIENT AND INTACT. KENDRICK CATH PLACED BELOW PATIENT DRAINING BY GRAVITY, CATH/TUBE INTACT AND ANCHORED. PT REQUESTED POLYGRAPH TECHNICIAN CLEAN PT BEFORE SHE LEAVES. VSS, WILL CONTINUE TO TREAT AND MONITOR THROUGHOUT SHIFT. SAFETY MEASURES IN PLACE, BED LOCKED AND IN LOWEST POSITION, SIDE RAILS UPX2, CALL LIGHT WITHIN REACH, PT WILL BE INSTRUCTED TO CALL FOR ASSISTANCE.
[2021-07-02] MEDS: BLOOD SUGAR DIAGNOSTIC 1 EACH STRIP VI SCH ×4 (08:18→21:47)
[2021-07-02] MEDS: PANTOPRAZOLE 40 MG TABLET.DR PO SCH (08:21)
[2021-07-02] MEDS: *INSULIN REGULAR(HUMULIN R)HUM 100 UNIT/ML VIAL SQ PRN ×2 (08:23→21:53)
[2021-07-02] MEDS: GLUCERNA SHAKE 237 ML CAN PO SCH (08:36)
[2021-07-02] MEDS: MEROPENEM 1 G in IV NS 0.9% 100 ML IV SCH ×2 (09:12→20:19)
[2021-07-02] MEDS: DOCUSATE SODIUM 100 MG CAPSULE PO SCH ×2 (09:12→21:45)
[2021-07-02] MEDS: GABAPENTIN 300 MG CAPSULE PO SCH ×2 (09:12→12:32)
[2021-07-02] MEDS: CHOLECALCIFEROL 1,000 UNIT TABLET (VIT D3) PO SCH (09:12)
[2021-07-02] MEDS: ASPIRIN EC 81 MG TABLET.DR PO SCH (09:12)
[2021-07-02] MEDS: FUROSEMIDE 20 MG/2 ML VIAL IV SCH ×2 (09:13→17:17)
[2021-07-02] MEDS: METOPROLOL TARTRATE 25 MG TABLET PO SCH ×2 (09:13→21:46)
[2021-07-02] MEDS: ENOXAPARIN SODIUM 120 MG/0.8 ML DISP.SYRIN SQ SCH ×2 (09:17→21:52)
[2021-07-02] MEDS: AMIODARONE 450 MG in IV D5W 241 ML IV PRN (09:46)
[2021-07-02] MEDS: INSULIN REGULAR, HUMAN 100 UNIT/ML 3 ML VIAL SQ PRN ×2 (12:34→17:20)
[2021-07-02] MEDS: AMIODARONE HCL 200 MG TABLET PO SCH ×2 (14:43→21:48)
--- NOTE | 2021-07-02 19:14 | NUR ---
RN NOTES PT FOUND SLEEPING IN SEMI FOWLERS, DISPLAYING NO S/S OF DISTRESS, FLACC = 0 AND BREATHING EVEN AND UNLABORED ON 4L O2 NC. PT REMAINED SR ON THE BEDSIDE MONITOR. L UA MIDLINE IS PATIENT AND INTACT. SBAR AND REPORT GIVEN TO DIE MAKER STAMPING RN, ALL QUESTIONS ANSWERED. PT ENDORSED IN STABLE CONDITION FOR VALERIE.
--- NOTE | 2021-07-02 19:46 | NUR ---
ICU/FASHION SHOW DIRECTOR RECIEVED REPORT FROM DAY SHIFT NURSE. SEE FLOWSHEET FOR ASSESSMENT, THERE ARE NO SKIN ISSUES THAT NEED TO BE ADDRESSED ON THE FLOWSHEET. THERE IS NO IV'S WHICH NEEDS TO BE ADDRESSED EITHER. PT ASST WITH TURNING AND REPOSITIONS MUCH SHE CAN. PT IS LARGE AND IS NOT ON A BIG BOY BED. WILL CONTINUE TO MONITOR THIS PT. NO ACUTE DISTRESS SEEN AT THIS TIME. PT APPEARS TO BE ASLEEP AT THIS TIME.
[2021-07-02] MEDS: NORTRIPTYLINE HCL 10 MG CAPSULE PO SCH (21:45)
[2021-07-02] MEDS: GABAPENTIN 100 MG CAPSULE PO SCH (21:45)
[2021-07-02] MEDS: INSULIN GLARGINE, 100 UNIT/ML CARTRIDGE SQ SCH (21:51)
[2021-07-02] MEDS: HYDROCODONE/APAP 10/325MG TABLET PO PRN (22:27)
--- NOTE | 2021-07-02 22:30 | NUR ---
ICU/GRANULATOR OPERATOR PT COMPLAINED ABOUT PAIN TO SACRAL AREA, GAVE NORCO 1 TAB FOR THIS. PT WAS REPOSITION FOR COMFORT AND CARE. WILL CONTINUE TO MONITOR THIS PT.
[2021-07-02] MEDS: ONDANSETRON HCL/PF 4 MG/2 ML VIAL IVP PRN (22:47)
--- NOTE | 2021-07-02 23:10 | NUR ---
ICU/FURNACE CARETAKER PT COMPLAINED ABOUT NAUSEA, NOTIFED THE CHARGE NURSE ABOUT THIS. PT WAS GIVEN IV ZOFRAN. WILL MONITOR THIS PT FOR ANY N/V.
[2021-07-03] VITALS (14 sets, daily range): BP systolic 108–138; BP diastolic 62–72
--- NOTE | 2021-07-03 01:00 | NUR ---
ICU/COMMISSIONER PUBLIC WORKS PT APPEARS TO BE SLEEPING. NO ACUTE DISTRESS SEEN AT THIS TIME. CALL LIGHT IS WITHIN REACH. PT IS CURRENTLY ON 5 LITERS VIA N/C WITH SATURATION AT 96-98%.
--- NOTE | 2021-07-03 04:30 | NUR ---
ICU/DERMATOPATHOLOGIST AM LABS WERE DONE, AWAIT FOR ANY ABNORMAL RESULTS. CALL LIGHT WITHIN REACH. PT REMAINS ASLEEP.
[2021-07-03 05:49] LABS: BASOPHILS % (AUTO) 0.6 % (0.0-2.0); EOSINOPHILS % (AUTO) 3.2 % (0.0-6.0); HEMATOCRIT 39 % (33-45); HEMOGLOBIN 13.4 g/dL (11.5-14.8); LYMPHOCYTES # (AUTO) 1.5 K/uL (0.8-4.8); LYMPHOCYTES % (AUTO) 22.3 % (20.0-44.0); MEAN CORPUSCULAR HGB CONC 34 g/dl (31.0-36.0); MEAN CORPUSCULAR VOLUME 98 fL (82-100); NEUTROPHILS # (AUTO) 3.8 K/uL (1.8-8.9); NEUTROPHILS % (AUTO) 58.9 % (43.0-81.0); PLATELET COUNT (AUTO) 281 K/uL (150-450); RED BLOOD CELL COUNT(AUTO) 4.02 MIL/uL (4.0-5.2); WHITE BLOOD COUNT (AUTO) 6.6 K/uL (4.3-11.0)
[2021-07-03 06:08] LABS: ALANINE AMINOTRANSFERASE 29 U/L (12-78); ALBUMIN 2.2 g/dL (3.4-5.0); ALKALINE PHOSPHATASE 67 U/L (46-116); ASPARTATE AMINOTRANSFERASE 20 U/L (15-37); BILIRUBIN,TOTAL 0.5 mg/dL (0.2-1.0); CALCIUM, SERUM 8.4 mg/dL (8.5-10.1); CARBON DIOXIDE 36 mmol/L (21-32); CHLORIDE 98 mmol/L (98-107); CREATININE 0.7 mg/dL (0.6-1.3); GLUCOSE 118 mg/dL (74-106); MAGNESIUM 1.9 mg/dL (1.8-2.4); PHOSPHORUS 4.1 mg/dL (2.5-4.9); POTASSIUM 3.7 mmol/L (3.5-5.1); SODIUM SERUM 137 mmol/L (136-145); TOTAL PROTEIN, SERUM 6.7 g/dL (6.4-8.2); UREA NITROGEN, BLOOD 19 mg/dL (7-18)
--- NOTE | 2021-07-03 07:30 | NUR ---
RN NOTES PT FOUND SLEEPING SUPINE DISPLAYING NO S/S OF DISTRESS, FLACC = 0 AND BREATHING IS EVEN AND UNLABORED ON 5L O2 NC. L UA MIDLINE PATIENT AND INTACT. KENDRICK CATH BELOW PATIENT DRAINING BY GRAVITY. PT MAINTAINING CONVERSION, SR ON THE MONITOR. VSS, WILL CONTINUE TO MONITOR AND TREAT THROUGHOUT SHIFT. SAFETY MEASURES IN PLACE, BED LOCKED AND IN LOWEST POSITION, SIDE RAILS UPX2, CALL LIGHT WITHIN REACH, PT INSTRUCTED TO CALL FOR ASSISTANCE.
[2021-07-03] MEDS: BLOOD SUGAR DIAGNOSTIC 1 EACH STRIP VI SCH ×4 (08:03→22:05)
[2021-07-03] MEDS: PANTOPRAZOLE 40 MG TABLET.DR PO SCH (08:03)
[2021-07-03] MEDS: MEROPENEM 1 G in IV NS 0.9% 100 ML IV SCH ×2 (09:01→21:18)
[2021-07-03] MEDS: VALSARTAN 40 MG TABLET PO SCH (09:01)
[2021-07-03] MEDS: CHOLECALCIFEROL 1,000 UNIT TABLET (VIT D3) PO SCH (09:02)
[2021-07-03] MEDS: GABAPENTIN 300 MG CAPSULE PO SCH ×2 (09:02→12:56)
[2021-07-03] MEDS: FUROSEMIDE 20 MG/2 ML VIAL IV SCH ×2 (09:02→17:04)
[2021-07-03] MEDS: GLUCERNA SHAKE 237 ML CAN PO SCH (09:02)
[2021-07-03] MEDS: METOPROLOL TARTRATE 25 MG TABLET PO SCH ×2 (09:03→21:21)
[2021-07-03] MEDS: AMIODARONE HCL 200 MG TABLET PO SCH ×2 (09:03→21:20)
[2021-07-03] MEDS: ASPIRIN EC 81 MG TABLET.DR PO SCH (09:03)
[2021-07-03] MEDS: DOCUSATE SODIUM 100 MG CAPSULE PO SCH ×2 (09:03→21:22)
[2021-07-03] MEDS: APIXABAN 5 MG TABLET PO SCH ×2 (09:06→17:04)
[2021-07-03] MEDS: MORPHINE SULFATE INJ 2 MG/ML DISP.SYRIN IV PRN ×2 (09:35→18:34)
[2021-07-03] MEDS: ONDANSETRON HCL/PF 4 MG/2 ML VIAL IVP PRN (09:40)
--- NOTE | 2021-07-03 10:30 | NUR ---
TRANSFER TO ANOTHER UNIT PT DOWNGRADED FROM ICU TO TELE, PT TRANSFERRED VIA HOSPITAL BED ON BEDSIDE MONITOR ACCOMPANIED BY PRIMARY RN AND WARPING MILL OPERATOR. PT IS CURRENTLY DROWSY BUT A&OX4, PT ENDORSES NO PAIN, PT BREATHING EVEN AND UNLABORED ON 5L O2 NC. REPORT GIVEN TO TEJINDER AT BEDSIDE. UPON ARRIVAL, PT IS SR ON THE MONITOR AND VS ARE WNL. THE BED WAS LOCKED AND LOWERED TO LOWEST POSITION, SIDE RAILS UPX3, CALL LIGHT PLACED TO BE WITHIN REACH OF PT, PT WAS REMINDED TO CALL FOR ASSISTANCE. SBAR AND REPORT GIVEN AND ALL QUESTIONS ANSWERED. PT ENDORSED IN STABLE CONDITION FOR VALERIE.
--- NOTE | 2021-07-03 10:38 | NUR ---
TELE/RN RECEIVING NOTES RECEIVED PATIENT CHARITO LEIVA, A TRANSFER FROM ICU. PATIENT IS ALERT AND ORIENTED X3-4, SLUGGISH. ON OXYGEN VIA NASAL CANNULA AT 5 LPM WITH HUMIDIFIER. NO PAIN/SOB NOTED AT THIS TIME. LEFT UPPER ARM MIDLINE ON HEPLOCK. KENDRICK CATHETER DRAINING INTO CLEAR YELLOW URINE. SAFETY PRECAUTIONS IN PLACED: BED LOCKED ON LOWEST POSITION, SIDE RAILS UPX2, CALL LIGHT WITHIN EASY REACH. WILL CONTINUE TO MONITOR PATIENT.
[2021-07-03] MEDS: INSULIN REGULAR, HUMAN 100 UNIT/ML 3 ML VIAL SQ PRN (12:59)
[2021-07-03] MEDS: HYDROCODONE/APAP 10/325MG TABLET PO PRN (18:41)
--- NOTE | 2021-07-03 19:13 | NUR ---
TELE/RN CLOSING NOTES PATIENT IN BED, PATIENT IS ALERT AND ORIENTED X3-4, SLUGGISH. ON OXYGEN VIA NASAL CANNULA AT 5 LPM WITH HUMIDIFIER. NO PAIN/SOB NOTED AT THIS TIME. LEFT UPPER ARM MIDLINE ON HEPLOCK. KENDRICK CATHETER DRAINING INTO CLEAR YELLOW URINE. SAFETY PRECAUTIONS IN PLACED: BED LOCKED ON LOWEST POSITION, SIDE RAILS UPX2, CALL LIGHT WITHIN EASY REACH. WILL ENDORSE TO THE NEXT SHIFT FOR VALERIE.
--- NOTE | 2021-07-03 19:30 | NUR ---
HEALTH PROGRAM SPECIALIST OPENING NOTES PATIENT WAS LAST SEEN AWAKE IN BED RESTING. PATIENT'S ALERT AND ORIENTED X3-4. PATIENT'S ON OXYGEN VIA NASAL CANNULA AT 5 LPM WITH HUMIDIFIER WITH NO RESPIRATORY DISTRESS NOTED. PATIENT'S CONNECTED TO A TELE MONITOR WITH NO CARDIAC DISTRESS NOTED. LEFT UPPER ARM MIDLINE NOTED ON HEP LOCK. KENDRICK CATHETER NOTED DRAINING CLEAR YELLOW URINE. PATIENT'S IN NO ACUTE DISTRESS AT THIS TIME. SAFETY PRECAUTIONS IN PLACE: BED LOCKED, BED ALARM ON, SIDE RAILS UPX3, AND CALL LIGHT WITHIN EASY REACH OF THE PATIENT. WILL CONTINUE TO MONITOR THE PATIENT.
[2021-07-03] MEDS: GABAPENTIN 100 MG CAPSULE PO SCH (21:19)
[2021-07-03] MEDS: NORTRIPTYLINE HCL 10 MG CAPSULE PO SCH (21:21)
--- NOTE | 2021-07-03 21:47 | NUR ---
METAL BONDING HELPER NOTES PATIENT'S BLOOD UYPGZ=045 MG/DL AT THIS TIME. WILL GIVE ORDERED 2 UNITS OF REGULAR INSULIN.
[2021-07-03] MEDS: INSULIN GLARGINE, 100 UNIT/ML CARTRIDGE SQ SCH (21:57)
[2021-07-03] MEDS: *INSULIN REGULAR(HUMULIN R)HUM 100 UNIT/ML VIAL SQ PRN (22:03)
[2021-07-04] VITALS: BP 107/54
[2021-07-04 04:58] VITALS: BP 112/61
--- NOTE | 2021-07-04 07:01 | NUR ---
CARBON ELECTRODES SUPERVISOR CLOSING NOTES PATIENT WAS LAST SEEN SLEEPING IN BED. PATIENT'S ALERT AND ORIENTED X3-4. PATIENT'S ON OXYGEN VIA NASAL CANNULA AT 5 LPM WITH HUMIDIFIER WITH NO RESPIRATORY DISTRESS NOTED. PATIENT'S CONNECTED TO A TELE MONITOR WITH NO CARDIAC DISTRESS NOTED. LEFT UPPER ARM MIDLINE NOTED ON HEP LOCK. KENDRICK CATHETER NOTED DRAINING CLEAR YELLOW URINE. PATIENT'S IN NO ACUTE DISTRESS AT THIS TIME. SAFETY PRECAUTIONS IN PLACE: BED LOCKED, BED ALARM ON, SIDE RAILS UPX3, AND CALL LIGHT WITHIN EASY REACH OF THE PATIENT. WILL ENDORSE CARE TO THE DAY SHIFT NURSE.
[2021-07-04 07:24] LABS: BASOPHILS % (AUTO) 0.5 % (0.0-2.0); EOSINOPHILS % (AUTO) 3.5 % (0.0-6.0); HEMATOCRIT 40 % (33-45); HEMOGLOBIN 13.1 g/dL (11.5-14.8); LYMPHOCYTES # (AUTO) 1.1 K/uL (0.8-4.8); LYMPHOCYTES % (AUTO) 16.6 % (20.0-44.0); MEAN CORPUSCULAR HGB CONC 33 g/dl (31.0-36.0); MEAN CORPUSCULAR VOLUME 99 fL (82-100); MONOCYTES # (AUTO) 0.9 K/uL (0.1-1.30); MONOCYTES % (AUTO) 13.8 % (2.0-12.0); NEUTROPHILS # (AUTO) 4.3 K/uL (1.8-8.9); NEUTROPHILS % (AUTO) 65.6 % (43.0-81.0); PLATELET COUNT (AUTO) 279 K/uL (150-450); WHITE BLOOD COUNT (AUTO) 6.6 K/uL (4.3-11.0)
[2021-07-04] MEDS: PANTOPRAZOLE 40 MG TABLET.DR PO SCH (07:37)
[2021-07-04 07:42] LABS: ALBUMIN 2.3 g/dL (3.4-5.0); BILIRUBIN,TOTAL 0.5 mg/dL (0.2-1.0); CALCIUM, SERUM 8.7 mg/dL (8.5-10.1); CREATININE 0.7 mg/dL (0.6-1.3); MAGNESIUM 2.1 mg/dL (1.8-2.4); PHOSPHORUS 3.9 mg/dL (2.5-4.9); POTASSIUM 3.8 mmol/L (3.5-5.1); TOTAL PROTEIN, SERUM 6.8 g/dL (6.4-8.2)
--- NOTE | 2021-07-04 07:49 | NUR ---
OUTSIDE SALES REPRESENTATIVE OPENING NOTE RECEIVED PT AWAKE IN BED. A/O X3-4. PT ON 5LPM O2 WITH HUMIDIFIER WITH NO SOB OR S/S OF RESPIRATORY DISTRESS NOTED. PT ON EXTERNAL AUTO GARAGE ATTENDANT READING SR AT 72BPM. IV ACCESS IN [place] MIDLINE, INTACT AND PATENT. KENDRICK CATH IN PLACE DRAINING CLEAR YELLOW URINE. SAFETY PRECAUTIONS MAINTAINED. BED IN LOWEST LOCKED POSITION, HOB ELEVATED, SIDE RAILS UP X3. CALL LIGHT AND TABLE WITHIN REACH. WILL CONTINUE TO MONITOR.
[2021-07-04] MEDS: BLOOD SUGAR DIAGNOSTIC 1 EACH STRIP VI SCH ×4 (07:58→23:24)
[2021-07-04 08:00] VITALS: BP 119/65
[2021-07-04] MEDS: MEROPENEM 1 G in IV NS 0.9% 100 ML IV SCH ×2 (08:01→21:14)
[2021-07-04] MEDS: INSULIN REGULAR, HUMAN 100 UNIT/ML 3 ML VIAL SQ PRN (08:05)
[2021-07-04] MEDS: VALSARTAN 40 MG TABLET PO SCH (08:21)
[2021-07-04] MEDS: FUROSEMIDE 20 MG/2 ML VIAL IV SCH ×2 (08:21→16:30)
[2021-07-04] MEDS: ASPIRIN EC 81 MG TABLET.DR PO SCH (08:22)
[2021-07-04] MEDS: AMIODARONE HCL 200 MG TABLET PO SCH ×2 (08:22→21:15)
[2021-07-04] MEDS: DOCUSATE SODIUM 100 MG CAPSULE PO SCH ×2 (08:23→21:16)
[2021-07-04] MEDS: METOPROLOL TARTRATE 25 MG TABLET PO SCH ×2 (08:23→21:16)
[2021-07-04] MEDS: GABAPENTIN 300 MG CAPSULE PO SCH ×2 (08:23→12:17)
[2021-07-04] MEDS: CHOLECALCIFEROL 1,000 UNIT TABLET (VIT D3) PO SCH (08:25)
[2021-07-04] MEDS: GLUCERNA SHAKE 237 ML CAN PO SCH (08:26)
[2021-07-04] MEDS: APIXABAN 5 MG TABLET PO SCH ×2 (08:27→16:31)
[2021-07-04 12:00] VITALS: BP 115/74
[2021-07-04] MEDS: HYDROCODONE/APAP 10/325MG TABLET PO PRN (12:08)
--- NOTE | 2021-07-04 12:08 | NUR ---
RN NOTE - PAIN PT C/O ACHING AND CHRONIC GENERALIZED PAIN, RATED 8/10 ON 0-10 PAIN SCALE. PER PT REQUEST, ADMINISTERED NORCO 10-325 PO Q6H PRN ORDERED. WILL CONTINUE TO MONITOR PT.
--- NOTE | 2021-07-04 12:13 | NUR ---
RN NOTE PT REFUSED ACCUCHECK AT THIS TIME. EDUCATED PT ON RISKS AND BENEFITS OF REFUSING ACCUCHECK. PT VERBALIZED UNDERSTANDING. WILL CONTINUE TO MONITOR.
[2021-07-04 16:00] VITALS: BP 105/58
[2021-07-04] MEDS: *INSULIN REGULAR(HUMULIN R)HUM 100 UNIT/ML VIAL SQ PRN ×2 (17:59→23:27)
--- NOTE | 2021-07-04 18:24 | NUR ---
YARDER BOSS CLOSING NOTE PT IS AWAKE IN BED. A/O X3-4. PT ON 5LPM O2 WITH HUMIDIFIER WITH NO SOB OR S/S OF RESPIRATORY DISTRESS NOTED. PT ON EXTERNAL SEWAGE SCREEN OPERATOR READING SR AT 63BPM. IV ACCESS IN [place] MIDLINE, INTACT AND PATENT. KENDRICK CATH IN PLACE DRAINING CLEAR YELLOW URINE. ALL NEEDS HAVE BEEN MET. SAFETY PRECAUTIONS MAINTAINED AT ALL TIMES. BED IN LOWEST LOCKED POSITION, HOB ELEVATED, SIDE RAILS UP X3. CALL LIGHT AND TABLE WITHIN REACH. WILL ENDORSE TO ONCOMING NURSE FOR VALERIE.
[2021-07-04] MEDS: MORPHINE SULFATE INJ 2 MG/ML DISP.SYRIN IV PRN (19:50)
[2021-07-04] MEDS: ONDANSETRON HCL/PF 4 MG/2 ML VIAL IVP PRN (19:53)
[2021-07-04] MEDS: NORTRIPTYLINE HCL 10 MG CAPSULE PO SCH (21:18)
[2021-07-04] MEDS: GABAPENTIN 100 MG CAPSULE PO SCH (21:18)
[2021-07-04 22:00] VITALS: BP 115/63
[2021-07-04] MEDS: INSULIN GLARGINE, 100 UNIT/ML CARTRIDGE SQ SCH (23:26)
[2021-07-05] VITALS: BP 108/55
[2021-07-05 04:00] VITALS: BP 128/67
[2021-07-05] MEDS: HYDROCODONE/APAP 10/325MG TABLET PO PRN ×3 (04:29→21:37)
[2021-07-05 07:15] LABS: BASOPHILS # (AUTO) 0.1 K/uL (0.0-0.2); BASOPHILS % (AUTO) 0.7 % (0.0-2.0); EOSINOPHILS % (AUTO) 3.2 % (0.0-6.0); HEMATOCRIT 39 % (33-45); HEMOGLOBIN 13.2 g/dL (11.5-14.8); LYMPHOCYTES # (AUTO) 1.2 K/uL (0.8-4.8); LYMPHOCYTES % (AUTO) 15.4 % (20.0-44.0); MEAN CORPUSCULAR HGB CONC 34 g/dl (31.0-36.0); MEAN CORPUSCULAR VOLUME 98 fL (82-100); MONOCYTES % (AUTO) 12.4 % (2.0-12.0); NEUTROPHILS # (AUTO) 5.4 K/uL (1.8-8.9); NEUTROPHILS % (AUTO) 68.3 % (43.0-81.0); PLATELET COUNT (AUTO) 303 K/uL (150-450); RED BLOOD CELL COUNT(AUTO) 3.95 MIL/uL (4.0-5.2); WHITE BLOOD COUNT (AUTO) 7.9 K/uL (4.3-11.0)
[2021-07-05 07:45] LABS: ALBUMIN 2.3 g/dL (3.4-5.0); BILIRUBIN,TOTAL 0.5 mg/dL (0.2-1.0); CALCIUM, SERUM 8.8 mg/dL (8.5-10.1); CREATININE 0.6 mg/dL (0.6-1.3); MAGNESIUM 2.3 mg/dL (1.8-2.4); PHOSPHORUS 3.7 mg/dL (2.5-4.9); POTASSIUM 4.2 mmol/L (3.5-5.1); TOTAL PROTEIN, SERUM 6.7 g/dL (6.4-8.2)
--- NOTE | 2021-07-05 07:47 | NUR ---
report given to am shift nurse for cont. of care
[2021-07-05 08:00] VITALS: BP 128/67
[2021-07-05] MEDS: BLOOD SUGAR DIAGNOSTIC 1 EACH STRIP VI SCH ×4 (08:10→21:58)
[2021-07-05] MEDS: PANTOPRAZOLE 40 MG TABLET.DR PO SCH (08:45)
[2021-07-05] MEDS: VALSARTAN 40 MG TABLET PO SCH (08:45)
[2021-07-05] MEDS: DOCUSATE SODIUM 100 MG CAPSULE PO SCH ×2 (08:45→21:06)
[2021-07-05] MEDS: FUROSEMIDE 20 MG/2 ML VIAL IV SCH ×2 (08:45→16:57)
[2021-07-05] MEDS: CHOLECALCIFEROL 1,000 UNIT TABLET (VIT D3) PO SCH (08:46)
[2021-07-05] MEDS: AMIODARONE HCL 200 MG TABLET PO SCH ×2 (08:46→21:06)
[2021-07-05] MEDS: GABAPENTIN 300 MG CAPSULE PO SCH ×2 (08:46→13:49)
[2021-07-05] MEDS: METOPROLOL TARTRATE 25 MG TABLET PO SCH ×2 (08:47→21:06)
[2021-07-05] MEDS: MEROPENEM 1 G in IV NS 0.9% 100 ML IV SCH ×2 (08:47→21:05)
[2021-07-05] MEDS: ASPIRIN EC 81 MG TABLET.DR PO SCH (08:47)
[2021-07-05] MEDS: APIXABAN 5 MG TABLET PO SCH ×2 (08:48→16:57)
[2021-07-05] MEDS: GLUCERNA SHAKE 237 ML CAN PO SCH (09:17)
[2021-07-05 12:00] VITALS: BP 112/66
[2021-07-05] MEDS: INSULIN REGULAR, HUMAN 100 UNIT/ML 3 ML VIAL SQ PRN ×2 (13:04→17:02)
[2021-07-05] MEDS: ONDANSETRON HCL/PF 4 MG/2 ML VIAL IVP PRN (13:51)
[2021-07-05 18:03] VITALS: BP 122/63
--- NOTE | 2021-07-05 18:33 | NUR ---
REFUSE COLLECTOR SUPERVISOR CLOSING NOTE PT IS AWAKE IN BED. A/O X3-4. PT ON 5LPM O2 WITH HUMIDIFIER WITH NO SOB OR S/S OF RESPIRATORY DISTRESS NOTED. PT ON EXTERNAL SEXUAL HEALTH PHYSICIAN READING SR AT 63BPM. IV ACCESS IN [place] MIDLINE, INTACT AND PATENT. KENDRICK CATH IN PLACE DRAINING CLEAR YELLOW URINE. ALL NEEDS HAVE BEEN MET. SAFETY PRECAUTIONS MAINTAINED AT ALL TIMES. BED IN LOWEST LOCKED POSITION, HOB ELEVATED, SIDE RAILS UP X3. CALL LIGHT AND TABLE WITHIN REACH. WILL ENDORSE TO ONCOMING NURSE FOR VALERIE.
--- NOTE | 2021-07-05 19:35 | NUR ---
TELE/RN OPENING NOTE RECEIVED PATIENT RESTING IN BED. AWAKE, ALERT AND ORIENTED X 3. ABLE TO MAKE NEEDS KNOWN. DENIES PAIN AT THIS TIME. CONTINUES ON O2 5L VIA NC WITH NO S/SX OF RESPIRATORY DISTRESS NOTED. IV ACCESS TO LEFT UPPER ARM MIDLINE INTACT, PATENT AND SALINE LOCKED. CONTINUES ON IV ABX. KENDRICK CATHETER IN PLACE DRAINING TO GRAVITY. CALL LIGHT WITHIN REACH. ASPIRATION, FALL AND SAFETY PRECAUTIONS MAINTAINED. WILL CONTINUE TO MONITOR.
[2021-07-05 20:00] VITALS: BP 115/64
[2021-07-05] MEDS: NORTRIPTYLINE HCL 10 MG CAPSULE PO SCH (21:07)
[2021-07-05] MEDS: GABAPENTIN 100 MG CAPSULE PO SCH (21:07)
[2021-07-05] MEDS: INSULIN GLARGINE, 100 UNIT/ML CARTRIDGE SQ SCH (22:01)
[2021-07-05] MEDS: *INSULIN REGULAR(HUMULIN R)HUM 100 UNIT/ML VIAL SQ PRN (22:02)
[2021-07-06] VITALS: BP_SYST 108; BP_SYST 136; BP_DIAS 66; BP_DIAS 93
[2021-07-06 04:00] VITALS: BP 110/65
[2021-07-06 06:11] LABS: BASOPHILS # (AUTO) 0.1 K/uL (0.0-0.2); BASOPHILS % (AUTO) 0.7 % (0.0-2.0); HEMATOCRIT 40 % (33-45); HEMOGLOBIN 13.3 g/dL (11.5-14.8); LYMPHOCYTES # (AUTO) 1.4 K/uL (0.8-4.8); LYMPHOCYTES % (AUTO) 16.3 % (20.0-44.0); MEAN CORPUSCULAR HGB CONC 33 g/dl (31.0-36.0); MEAN CORPUSCULAR VOLUME 98 fL (82-100); MONOCYTES # (AUTO) 1.2 K/uL (0.1-1.30); MONOCYTES % (AUTO) 14.2 % (2.0-12.0); NEUTROPHILS # (AUTO) 5.5 K/uL (1.8-8.9); NEUTROPHILS % (AUTO) 65.8 % (43.0-81.0); PLATELET COUNT (AUTO) 291 K/uL (150-450); RED BLOOD CELL COUNT(AUTO) 4.06 MIL/uL (4.0-5.2); WHITE BLOOD COUNT (AUTO) 8.4 K/uL (4.3-11.0)
--- NOTE | 2021-07-06 06:20 | NUR ---
MS/RN CLOSING NOTE PATIENT CURRENTLY SLEEPING IN BED. ALERT AND ORIENTED X 3. ABLE TO MAKE NEEDS KNOWN. DENIES PAIN AT THIS TIME. CONTINUES ON O2 4L VIA NC WITH NO S/SX OF RESPIRATORY DISTRESS NOTED. IV ACCESS TO LEFT UPPER ARM MIDLINE INTACT, PATENT AND SALINE LOCKED. KENDRICK CATHETER IN PLACE DRAINING TO GRAVITY. TOTAL OUTPUT WAS 700ML THIS SHIFT OF CLEAR YELLOW URINE. CALL LIGHT WITHIN REACH. ASPIRATION, FALL AND SAFETY PRECAUTIONS MAINTAINED. WILL ENDORSE PLAN OF CARE TO ONCOMING SHIFT.
[2021-07-06] MEDS: BLOOD SUGAR DIAGNOSTIC 1 EACH STRIP VI SCH ×4 (06:47→21:59)
--- NOTE | 2021-07-06 07:05 | NUR ---
RN OPENING NOTE RECEIVED PATIENT IN BED. A/O X4. ON 02 AT 4 LPM VIA NC. IN NO APPARENT DISTRESS. DENIES ANY PAIN OR DISCOMFORT AT THIS TIME. TELE READING SHOWS SB - SR. [place] MIDLINE, INTACT AND PATENT. KENDRICK CATHETER IN PLACE, DRAINING YELLOW URINE. SAFETY MEASURES MAINTAINED. CALL LIGHT WITHIN REACH. BED IS IN LOWEST POSITION, BRAKES LOCKED. SIDE RAILS UP X2. WILL CONTINUE PLAN OF CARE.
[2021-07-06 07:14] LABS: ALBUMIN 2.4 g/dL (3.4-5.0); BILIRUBIN,TOTAL 0.6 mg/dL (0.2-1.0); CALCIUM, SERUM 8.8 mg/dL (8.5-10.1); CREATININE 0.7 mg/dL (0.6-1.3); MAGNESIUM 2.2 mg/dL (1.8-2.4); PHOSPHORUS 4.1 mg/dL (2.5-4.9); POTASSIUM 4.2 mmol/L (3.5-5.1); TOTAL PROTEIN, SERUM 6.9 g/dL (6.4-8.2)
[2021-07-06 08:00] VITALS: BP 142/78
[2021-07-06] MEDS: PANTOPRAZOLE 40 MG TABLET.DR PO SCH (08:29)
[2021-07-06] MEDS: ASPIRIN EC 81 MG TABLET.DR PO SCH (08:29)
[2021-07-06] MEDS: CHOLECALCIFEROL 1,000 UNIT TABLET (VIT D3) PO SCH (08:29)
[2021-07-06] MEDS: AMIODARONE HCL 200 MG TABLET PO SCH ×2 (08:29→21:21)
[2021-07-06] MEDS: METOPROLOL TARTRATE 25 MG TABLET PO SCH (08:30)
[2021-07-06] MEDS: DOCUSATE SODIUM 100 MG CAPSULE PO SCH ×2 (08:30→21:20)
[2021-07-06] MEDS: GABAPENTIN 300 MG CAPSULE PO SCH ×2 (08:30→12:45)
[2021-07-06] MEDS: FUROSEMIDE 20 MG/2 ML VIAL IV SCH (08:32)
[2021-07-06] MEDS: APIXABAN 5 MG TABLET PO SCH ×2 (08:32→16:12)
[2021-07-06] MEDS: GLUCERNA SHAKE 237 ML CAN PO SCH (08:33)
[2021-07-06] MEDS: VALSARTAN 40 MG TABLET PO SCH (08:35)
[2021-07-06] MEDS: HYDROCODONE/APAP 10/325MG TABLET PO PRN ×2 (10:53→17:11)
[2021-07-06] MEDS: INSULIN REGULAR, HUMAN 100 UNIT/ML 3 ML VIAL SQ PRN (12:30)
[2021-07-06 16:00] VITALS: BP 135/62
[2021-07-06] MEDS: SPIRONOLACTONE 25 MG TABLET PO SCH (16:11)
--- NOTE | 2021-07-06 18:51 | NUR ---
RN CLOSING NOTE PATIENT RESTING IN BED. A/O X4. ON 02 AT 4 LPM VIA NC. IN NO APPARENT DISTRESS. TELE READING SHOWS SB - SR. [place] MIDLINE, INTACT AND PATENT. KENDRICK CATHETER IN PLACE, DRAINING YELLOW URINE. ALL DUE MEDS GIVEN ORDERED. ALL NEEDS HAVE BEEN MET AND ATTENDED. SAFETY MEASURES MAINTAINED. KEPT CALL LIGHT WITHIN REACH. BED IS IN LOWEST POSITION, BRAKES LOCKED. SIDE RAILS UP X2. WILL ENDORSE CONTINUITY OF CARE TO ONCOMING SHIFT.
--- NOTE | 2021-07-06 19:30 | NUR ---
CROZE MACHINE OPERATOR OPENING NOTES PATIENT WAS LAST SEEN SLEEPING IN BED. PATIENT'S ALERT AND ORIENTEDX4. PATIENT'S ON 4LPM OF OXYGEN VIA NASAL CANNULA WITH NO RESPIRATORY DISTRESS NOTED. PATIENT'S CONNECTED TO A TELE MONITOR WITH NO CARDIAC DISTRESS NOTED. PATIENT HAS A [place] MIDLINE, WHICH IS INTACT, PATENT, AND FLUSHING WELL. PATIENT'S IN NO ACUTE DISTRESS AT THIS TIME. SAFETY MEASURES IN PLACE: BED LOCKED, BED ALARM ON, SIDE RAILS UPX3, AND CALL LIGHT WITHIN REACH OF THE PATIENT. WILL CONTINUE TO MONITOR THE PATIENT.
[2021-07-06 20:00] VITALS: BP 118/58
[2021-07-06] MEDS: CARVEDILOL 6.25 MG TABLET PO SCH (20:23)
[2021-07-06] MEDS: NORTRIPTYLINE HCL 10 MG CAPSULE PO SCH (21:20)
[2021-07-06] MEDS: GABAPENTIN 100 MG CAPSULE PO SCH (21:21)
[2021-07-06] MEDS: *INSULIN REGULAR(HUMULIN R)HUM 100 UNIT/ML VIAL SQ PRN (21:57)
[2021-07-06] MEDS: INSULIN GLARGINE, 100 UNIT/ML CARTRIDGE SQ SCH (21:59)
[2021-07-07] VITALS: BP 117/60
[2021-07-07 04:00] VITALS: BP 121/68
--- NOTE | 2021-07-07 06:41 | NUR ---
SEAFOOD HARVESTER CLOSING NOTES PATIENT WAS LAST SEEN SLEEPING IN BED. PATIENT'S ALERT AND ORIENTEDX4. PATIENT'S ON 4LPM OF OXYGEN VIA NASAL CANNULA WITH NO RESPIRATORY DISTRESS NOTED. PATIENT'S CONNECTED TO A TELE MONITOR WITH NO CARDIAC DISTRESS NOTED. PATIENT HAS A [place] MIDLINE, WHICH IS INTACT, PATENT, AND FLUSHING WELL. PATIENT'S BLOOD SUGAR AT 0637 WAS 129 MG/DL. PATIENT'S IN NO ACUTE DISTRESS AT THIS TIME. SAFETY MEASURES IN PLACE: BED LOCKED, BED ALARM ON, SIDE RAILS UPX3, AND CALL LIGHT WITHIN REACH OF THE PATIENT. WILL ENDORSE CARE TO THE DAY SHIFT NURSE.
[2021-07-07] MEDS: BLOOD SUGAR DIAGNOSTIC 1 EACH STRIP VI SCH ×3 (06:43→17:08)
--- NOTE | 2021-07-07 07:38 | NUR ---
TELE/RN OPENING NOTES RECEIVED PATIENT ON BED AWAKE ALERT AND ORIENTEDX4. PATIENT IS ON 4L OXYGEN VIA NASAL CANNULA. PATIENT IN NO APPARENT RESPIRATORY DISTRESS NOTED. NO COMPLAINED OF PAIN NOTED AT THIS TIME. WILL CONTINUE TO MONITOR.
[2021-07-07 08:00] VITALS: BP 119/55
[2021-07-07] MEDS: PANTOPRAZOLE 40 MG TABLET.DR PO SCH (08:10)
[2021-07-07] MEDS: CHOLECALCIFEROL 1,000 UNIT TABLET (VIT D3) PO SCH (08:43)
[2021-07-07] MEDS: DOCUSATE SODIUM 100 MG CAPSULE PO SCH (08:43)
[2021-07-07] MEDS: ASPIRIN EC 81 MG TABLET.DR PO SCH (08:44)
[2021-07-07] MEDS: SPIRONOLACTONE 25 MG TABLET PO SCH (08:44)
[2021-07-07] MEDS: GABAPENTIN 300 MG CAPSULE PO SCH ×2 (08:45→12:12)
[2021-07-07] MEDS: AMIODARONE HCL 200 MG TABLET PO SCH (08:46)
[2021-07-07] MEDS: CARVEDILOL 6.25 MG TABLET PO SCH ×2 (08:47→17:00)
[2021-07-07] MEDS: APIXABAN 5 MG TABLET PO SCH ×2 (08:47→17:01)
[2021-07-07] MEDS: VALSARTAN 40 MG TABLET PO SCH (08:48)
[2021-07-07] MEDS ORDERED: FUROSEMIDE 40 MG TABLET PO SCH (09:00)
[2021-07-07] MEDS: GLUCERNA SHAKE 237 ML CAN PO SCH (09:00)
[2021-07-07] MEDS: HYDROCODONE/APAP 10/325MG TABLET PO PRN ×2 (10:31→17:00)
[2021-07-07] MEDS ORDERED: SPIR25TA6 PO (10:47)
[2021-07-07] MEDS ORDERED: Aspirin Ec PO (10:47)
[2021-07-07] MEDS ORDERED: CARV6.252 PO (10:47)
[2021-07-07] MEDS ORDERED: FURO40TA5 PO (10:47)
[2021-07-07] MEDS ORDERED: APIX5TAB PO (10:47)
[2021-07-07 12:00] VITALS: BP 119/68
[2021-07-07] MEDS: INSULIN REGULAR, HUMAN 100 UNIT/ML 3 ML VIAL SQ PRN (12:15)
[2021-07-07 15:11] LABS: BASOPHILS % (AUTO) 0.6 % (0.0-2.0); EOSINOPHILS % (AUTO) 1.9 % (0.0-6.0); HEMATOCRIT 42 % (33-45); HEMOGLOBIN 13.8 g/dL (11.5-14.8); LYMPHOCYTES # (AUTO) 0.9 K/uL (0.8-4.8); LYMPHOCYTES % (AUTO) 12.1 % (20.0-44.0); MEAN CORPUSCULAR HGB CONC 33 g/dl (31.0-36.0); MEAN CORPUSCULAR VOLUME 102 fL (82-100); MONOCYTES # (AUTO) 0.8 K/uL (0.1-1.30); MONOCYTES % (AUTO) 10.8 % (2.0-12.0); NEUTROPHILS # (AUTO) 5.6 K/uL (1.8-8.9); NEUTROPHILS % (AUTO) 74.6 % (43.0-81.0); PLATELET COUNT (AUTO) 250 K/uL (150-450); RED BLOOD CELL COUNT(AUTO) 4.14 MIL/uL (4.0-5.2); WHITE BLOOD COUNT (AUTO) 7.6 K/uL (4.3-11.0)
[2021-07-07 15:14] LABS: CALCIUM, SERUM 8.5 mg/dL (8.5-10.1); CREATININE 0.8 mg/dL (0.6-1.3); PHOSPHORUS 3.2 mg/dL (2.5-4.9); POTASSIUM 4.2 mmol/L (3.5-5.1)
[2021-07-07 16:00] VITALS: BP 141/76
[2021-07-07 17:00] VITALS: BP 141/76
--- NOTE | 2021-07-07 18:18 | NUR ---
RN NOTES PATIENT REFUSED FOR PRE DISCHARGE WOUND PHOTO EXPLAINED THE RISK AND BENEFITS.
--- NOTE | 2021-07-07 18:55 | NUR ---
RN NOTES PATIENT IS ALERT AND ORIENTED X4. PATIENT IS ON ROOM AIR. PATIENT IN NO APPARENT RESPIRATORY DISTRESS NOTED. SEEN AND EXAMINED BY MD WITH ORDERS MADE AND CARRIED OUT. ALL DUE MEDICATIONS WAS GIVEN. DISCHARGED INSTRUCTIONS WAS GIVEN AND PATIENT VERBALIZED UNDERSTANDING. REPORT WAS GIVEN TO BECCA WESTBROOK AT . CALLED [employer] ADMITTING EMPLOYEE AT , ITS OK TO LEAVE KENDRICK CATHETER ON. PATIENT LEFT THE HOSPITAL IN MEDICALLY STABLE CONDITION. GERMAN TUTOR BY 2 EMT VIA AMBULANCE.
== END 2021-07-07 18:52 | DRG 871 ==
LOC: ER 12:42 → TELE1 13:55 → TELE-TD 06-29 01:42 → ICU 06-29 11:46 → TELE1 07-03 10:20 → TELE 07-05 17:16
PROVIDERS: ADMIT Internal Medicine; ATTEND Nurse Practitioner Acute Care
PROC: 05HY33Z Insertion of Infusion Device into Upper Vein, Percutaneous Approach (ICD-10-PCS; principal; 2021-06-29)
DX: A41.9 Sepsis, unspecified organism (principal); I21.A1 Myocardial infarction type 2; I50.23 Acute on chronic systolic (congestive) heart failure; J96.01 Acute respiratory failure with hypoxia; N17.0 Acute kidney failure with tubular necrosis; N39.0 Urinary tract infection, site not specified; D68.59 Other primary thrombophilia; E87.1 Hypo-osmolality and hyponatremia; I48.92 Unspecified atrial flutter; J98.11 Atelectasis; I42.9 Cardiomyopathy, unspecified; E86.0 Dehydration; I48.91 Unspecified atrial fibrillation; E11.65 Type 2 diabetes mellitus with hyperglycemia; E66.01 Morbid (severe) obesity due to excess calories; Z79.4 Long term (current) use of insulin; Z20.822 Contact with and (suspected) exposure to COVID-19; I11.0 Hypertensive heart disease with heart failure; Z85.42 Personal history of malignant neoplasm of other parts of uterus; Z88.1 Allergy status to other antibiotic agents; Z88.2 Allergy status to sulfonamides; Z91.040 Latex allergy status; Z88.8 Allergy status to other drugs, medicaments and biological substances; Z91.048 Other nonmedicinal substance allergy status; Z79.899 Other long term (current) drug therapy; E87.8 Other disorders of electrolyte and fluid balance, not elsewhere classified; E86.1 Hypovolemia; B96.20 Unspecified Escherichia coli [E. coli] as the cause of diseases classified elsewhere; B96.4 Proteus (mirabilis) (morganii) as the cause of diseases classified elsewhere; Z74.09 Other reduced mobility
CPT/HCPCS: 36410; 36415; 71045-TC; 80048-TC; 80053-TC; 80076-TC; 81001; 82962-TC; 83605-TC; 83735-TC; 84100-TC; 84300-TC; 84443-TC; 84484-TC; 85025-TC; 85610-TC; 85730-TC; 87040-TC; 87081-TC; 87086-TC; 87186-TC; 93307-TC; 97110-TC; 97112-TC; 97530-TC; C1750; G0378; J0282; J0360; J1160; J1644; J1650; J1815; J1940; J2185; J2270; J2405; J2543; J3370; J3490; J7030; J7050; J7060; U0003

== ENCOUNTER 2022-08-01 16:31 | Inpatient (IN) | payer MEDICARE, OTHER ==
[~2022-08-01] VITALS: Ht 170.2 cm; Wt 104.3 kg
[~2022-08-01 16:31] MED LIST: ACET-868 PO; APIX5TAB PO; Aspirin Ec PO; BISA10SU11 RC; CALC1TAB30 PO; CARV6.252 PO; CHOL100062 PO; CRAN425C6 PO; DOCU-141 PO; EVEN500C4 PO; FURO40TA5 PO; GABA-532 PO; HYDR-3980 PO; INSU100V39 SQ; INSU100V7 SQ; LIDO30AD10 TP; MAGN400O6 PO; MAGN400T26 PO; NA P133E RC; NORT10CA PO; OMEG-88 PO; PANT40TA2 PO; PETR113O TP; SENN-261 PO; SPIR25TA6 PO; UBID100C13 PO; VITA1TAB56 PO
--- NOTE | 2022-08-01 16:57 | NUR ---
BIB RA [facility] FOR LOW O2SAT. PLACED ON BED, AAOX3, BREATHING EVEN AND UNLABORED SATURATING AT 100% WITH NRM 15LIT O2.
--- NOTE | 2022-08-01 17:10 | NUR ---
SWAB FOR COVID19 SENT TO LAB
--- NOTE | 2022-08-01 17:23 | NUR ---
MEDICAL TRANSCRIPTION AT BEDSIDE
[2022-08-01] MEDS ORDERED: OXYC5TAB3 PO (17:35)
[2022-08-01] MEDS ORDERED: AMLO-213 PO (17:35)
[2022-08-01] MEDS ORDERED: MULT-447 PO (17:35)
[2022-08-01] MEDS ORDERED: BACL10TA PO (17:35)
[2022-08-01] MEDS ORDERED: ASCO-352 PO (17:35)
[2022-08-01] MEDS ORDERED: BISA10SU11 RC (17:35)
[2022-08-01] MEDS ORDERED: DIPH1TAB PO (17:35)
[2022-08-01] MEDS ORDERED: NA P133E RC (17:35)
[2022-08-01] MEDS ORDERED: ZINC1CAP2 PO (17:35)
[2022-08-01] MEDS ORDERED: ACET-2605 PO (17:35)
[2022-08-01] MEDS ORDERED: AMIN30LI2 PO (17:35)
[2022-08-01] MEDS ORDERED: METO25TA20 PO (17:35)
--- NOTE | 2022-08-01 17:44 | NUR ---
PCR SWAB SENT TO LAB
[2022-08-01 17:52] LABS: BASOPHILS % (AUTO) 0.3 % (0.0-2.0); EOSINOPHILS % (AUTO) 0.1 % (0.0-6.0); HEMATOCRIT 30 % (33-45); HEMOGLOBIN 10.2 g/dL (11.5-14.8); LYMPHOCYTES # (AUTO) 0.8 K/uL (0.8-4.8); LYMPHOCYTES % (AUTO) 6.6 % (20.0-44.0); MEAN CORPUSCULAR HGB CONC 34 g/dl (31.0-36.0); MEAN CORPUSCULAR VOLUME 86 fL (82-100); MONOCYTES # (AUTO) 0.7 K/uL (0.1-1.30); MONOCYTES % (AUTO) 5.3 % (2.0-12.0); NEUTROPHILS % (AUTO) 87.7 % (43.0-81.0); PLATELET COUNT (AUTO) 284 K/uL (150-450); WHITE BLOOD COUNT (AUTO) 12.5 K/uL (4.3-11.0)
[2022-08-01 18:08] LABS: CALCIUM, SERUM 8.9 mg/dL (8.5-10.1); CARBON DIOXIDE 27 mmol/L (21-32); CHLORIDE 98 mmol/L (98-107); CREATININE 2.4 mg/dL (0.6-1.3); GLUCOSE 142 mg/dL (74-106); SODIUM SERUM 138 mmol/L (136-145); UREA NITROGEN, BLOOD 34 mg/dL (7-18)
[2022-08-01 18:21] LABS: ALANINE AMINOTRANSFERASE 15 U/L (12-78); ALBUMIN 1.8 g/dL (3.4-5.0); ALKALINE PHOSPHATASE 115 U/L (46-116); ASPARTATE AMINOTRANSFERASE 27 U/L (15-37); BILIRUBIN,DIRECT 0.3 mg/dL (0.0-0.2); BILIRUBIN,TOTAL 0.7 mg/dL (0.2-1.0)
[2022-08-01 18:33] LABS: POTASSIUM 2.8 mmol/L (3.5-5.1)
[2022-08-01] MEDS ORDERED: MORPHINE SULFATE INJ 4 MG/ML DISP.SYRIN ONE (18:59)
[2022-08-01] MEDS ORDERED: ONDANSETRON HCL/PF 4 MG/2 ML VIAL ONE (18:59)
[2022-08-01] MEDS ORDERED: ONDANSETRON HCL/PF - ER 4 MG/2 ML VIAL IV ONE (19:00)
[2022-08-01] MEDS ORDERED: MORPHINE SULFATE INJ 10 MG/ML DISP.SYRIN IV ONE (19:00)
[2022-08-01] MEDS ORDERED: FUROSEMIDE 40 MG/4 ML VIAL IV ONE (19:00)
[2022-08-01] MEDS ORDERED: FUROSEMIDE 40 MG/4 ML VIAL ONE (19:12)
[2022-08-01] MEDS ORDERED: POTASSIUM CL. PREMIX PERIPHER. 50 ML ONE ×2 (19:12→20:12)
[2022-08-01] MEDS: POTASSIUM CL. PREMIX PERIPHER. 50 ML IV SCH ×2 (19:20→22:00)
--- NOTE | 2022-08-01 21:45 | NUR ---
URINE SAMPLE SENT TO LAB
[2022-08-01 22:16] LABS: COLOR,URINE BROWN (YELLOW)
[2022-08-01 22:44] LABS: WBC,URINE TOO NUMEROUS TO COUN /HPF (0-3)
[2022-08-01 22:45] LABS: BACTERIA,URINE Many /HPF (None Seen); SQUAMOUS EPITHELIAL CELL,UR Few /HPF (None Seen)
[2022-08-01] MEDS ORDERED: ONDANSETRON HCL/PF 4 MG/2 ML VIAL IVP PRN (23:00)
[2022-08-01] MEDS ORDERED: INSULIN REGULAR, HUMAN 100 UNIT/ML 3 ML VIAL SQ PRN (23:00)
[2022-08-01] MEDS: METOPROLOL TARTRATE 25 MG TABLET PO SCH (23:00)
[2022-08-01] MEDS ORDERED: ACETAMINOPHEN 325 MG TABLET PO PRN (23:00)
[2022-08-01] MEDS: BACLOFEN (10 MG) 10 MG TABLET PO SCH (23:00)
[2022-08-01] MEDS ORDERED: DEXTROSE 50%-WATER 50 ML DISP.SYRIN IV PRN (23:00)
[2022-08-01] MEDS: MAGNESIUM OXIDE 400 MG TABLET PO SCH (23:00)
[2022-08-01] MEDS ORDERED: NA PHOS,M-B/NA PHOS,DI-BA 1 EA ENEMA RC PRN (23:00)
[2022-08-01] MEDS ORDERED: oxyCODONE IR immediate release 5 MG PO PRN (23:00)
[2022-08-01] MEDS: NORTRIPTYLINE HCL 10 MG CAPSULE PO SCH (23:00)
[2022-08-01] MEDS: INSULIN GLARGINE, 100 UNIT/ML CARTRIDGE SQ SCH (23:00)
[2022-08-01] MEDS: SENNOSIDES 8.6 MG TABLET PO SCH (23:00)
--- NOTE | 2022-08-01 23:00 | NUR ---
INSULIN GLARGINE NOT GIVEN BECAUSE PATIENT IS NOT SAFE TO HAVE ANYTHING BY MOUTH DUE TO DESSATURATION
--- NOTE | 2022-08-01 23:28 | NUR ---
2DECHO AT BEDSIDE
--- NOTE | 2022-08-01 23:55 | NUR ---
JORGE LUIS OF KIDNEYS DONE AT BEDSIDE
--- NOTE | 2022-08-02 | NUR ---
PATIENT'S 2300 PO MEDICATION WAS NOT GIVEN BECAUSE OF DESSATURATION D/T INCREASED THICK PHLEGM. PATIENT IS NOT SAFE TO HAVE ANYTHING BY MOUTH AT THE MOMENT. CN MADE AWARE.
--- NOTE | 2022-08-02 01:00 | NUR ---
SUCTION SECRETIONS DONE, NEEDS ATTENDED.
[2022-08-02] MEDS ORDERED: HEPARIN SODIUM, PORCINE 5000 UNITS/1 ML VIAL ONE (02:24)
[2022-08-02] MEDS: HEPARIN SODIUM, PORCINE 5000 UNITS/1 ML VIAL SQ SCH ×3 (02:31→21:00)
--- NOTE | 2022-08-02 04:49 | NUR ---
PT AWAKE. NEEDS ATTENDED. BLOOD DRAWN AND SENT TO LAB
[2022-08-02] MEDS ORDERED: CEFTRIAXONE 1 G in IV D5W 50 ML IV SCH (05:00)
[2022-08-02 05:40] LABS: BASOPHILS % (AUTO) 0.2 % (0.0-2.0); HEMATOCRIT 28 % (33-45); HEMOGLOBIN 9.4 g/dL (11.5-14.8); LYMPHOCYTES # (AUTO) 1.2 K/uL (0.8-4.8); LYMPHOCYTES % (AUTO) 9.9 % (20.0-44.0); MEAN CORPUSCULAR HGB CONC 34 g/dl (31.0-36.0); MEAN CORPUSCULAR VOLUME 86 fL (82-100); MONOCYTES # (AUTO) 0.7 K/uL (0.1-1.30); MONOCYTES % (AUTO) 5.7 % (2.0-12.0); NEUTROPHILS # (AUTO) 10.1 K/uL (1.8-8.9); NEUTROPHILS % (AUTO) 84.2 % (43.0-81.0); PLATELET COUNT (AUTO) 282 K/uL (150-450); RED BLOOD CELL COUNT(AUTO) 3.23 MIL/uL (4.0-5.2)
[2022-08-02 05:48] LABS: CALCIUM, SERUM 8.9 mg/dL (8.5-10.1); CARBON DIOXIDE 25 mmol/L (21-32); CHLORIDE 101 mmol/L (98-107); CREATININE 2.5 mg/dL (0.6-1.3); GLUCOSE 141 mg/dL (74-106); MAGNESIUM 1.9 mg/dL (1.8-2.4); PHOSPHORUS 3.5 mg/dL (2.5-4.9); POTASSIUM 3.3 mmol/L (3.5-5.1); SODIUM SERUM 137 mmol/L (136-145); UREA NITROGEN, BLOOD 41 mg/dL (7-18)
[2022-08-02 05:51] LABS: CHOLESTEROL 166 mg/dL (<200); HDL CHOLESTEROL 14 mg/dL (40-60); LDL 103 mg/dL (0-99); TRIGLYCERIDES 321 mg/dL (30-150)
[2022-08-02] MEDS: PANTOPRAZOLE 40 MG TABLET.DR PO SCH (07:30)
--- NOTE | 2022-08-02 07:59 | NUR ---
report given to Latasha WESTBROOK to continue care.
[2022-08-02 08:00] VITALS: BP 108/82
[2022-08-02] MEDS: ZINC SULFATE 220 MG CAPSULE PO SCH (09:00)
[2022-08-02] MEDS: BACLOFEN (10 MG) 10 MG TABLET PO SCH ×3 (09:00→17:00)
[2022-08-02] MEDS: MULTIVIT W/MINERALS 1 TAB TABLET PO SCH (09:00)
[2022-08-02] MEDS: PROSOURCE / PROSTAT (PYXIS) 30 ML UDC PO SCH ×3 (09:00→17:00)
[2022-08-02] MEDS: CHOLECALCIFEROL (VITAMIN D 3) 400 UNIT TABLET PO SCH (09:00)
[2022-08-02] MEDS: AMLODIPINE BESYLATE 10 MG TABLET PO SCH (09:00)
[2022-08-02] MEDS: LIDOCAINE 5% (PATCH) 1 EA PATCH TP SCH (09:00)
[2022-08-02] MEDS: CALCIUM CARB 250MG /VITAMIN D 1 UDTAB PO SCH (09:00)
[2022-08-02] MEDS: ASCORBIC ACID 500 MG TABLET PO SCH (09:00)
--- NOTE | 2022-08-02 09:00 | NUR ---
rn note received report from er nurse. patient is alert and oriented x1. pt has periods of confusion. pt is on 2 l nasal cannula tolerating at 97%. pt has skin tears throughout body and sacral redness. pt is on tele monitor showing uncontrolled afib. all safety measures in place.bed locked at lowest position.side rails up x2
--- NOTE | 2022-08-02 09:13 | NUR ---
wheeled patient via gurney accompanied by rn and emt to maria fernanda. rn assigned at bedside to assume care.
[2022-08-02] MEDS ORDERED: POTASSIUM CHLORIDE 10 MEQ TABLET.SA PO ONE (10:00)
[2022-08-02] MEDS: METOPROLOL TARTRATE 25 MG TABLET PO SCH ×2 (10:38→17:00)
[2022-08-02] MEDS: MEROPENEM 500 MG in IV NS 0.9% 100 ML IV SCH ×2 (10:59→20:59)
[2022-08-02] MEDS: BLOOD SUGAR DIAGNOSTIC 1 EACH STRIP IN SCH ×3 (10:59→18:02)
[2022-08-02] MEDS: IV NS 0.9% 1,000 ML IV SCH (11:00)
[2022-08-02 12:00] VITALS: BP 102/60
--- NOTE | 2022-08-02 12:00 | NUR ---
rn note hold anticoagulants due to hematuria per Wilstein order, keep pt NPO until swallow eval, patient is high risk for aspiration
[2022-08-02] MEDS ORDERED: hydrALAZINE HCL IV 20 MG VIAL IV PRN (12:30)
[2022-08-02 12:51] LABS: BAND % (MANUAL) 8 % (0.0-5.0); LYMPHOCYTES % (MANUAL) 8 % (16-48); MONOCYTES % (MANUAL) 4 % (0-11.0); NEUTROPHILS % (MANUAL) 80 (42-76)
--- NOTE | 2022-08-02 13:00 | NUR ---
rn note spoke with daughter provided updates
[2022-08-02] MEDS ORDERED: IPRATROPIUM BROMIDE 14 GM INHALER (or 12.9 GM) IH SCH (13:30)
[2022-08-02] MEDS: INSULIN REGULAR, HUMAN 100 UNIT/ML 3 ML VIAL SQ PRN (14:22)
[2022-08-02 16:00] VITALS: BP 100/41
--- NOTE | 2022-08-02 17:00 | NUR ---
rn note called pharmacy because lidocaine wasnt in pt [place]. pharmacy said lidocaine patch is in [facility]. offered medication to patient but pt refused.
--- NOTE | 2022-08-02 18:32 | NUR ---
rn note notified jam zee that patient bp is 100/41, hr 82. asked if okay to hold and put parameters. will followup
--- NOTE | 2022-08-02 18:33 | NUR ---
rn note pt accuchecks 1200 137 pt accuchecks 1730 150 no coverage given due to pt being npo, pending swallow eval, high risk for aspiration
--- NOTE | 2022-08-02 18:47 | NUR ---
rn note notified jam zee that bp is 100/41 and if okay to hold metoprol. said ok to hold and hold metoprol if sbp < 100 notified jam zee that urine output < 100 ml. will endorse to shift supervisor rn rn. waiting for response. consulted with that pt might need dialysis
--- NOTE | 2022-08-02 19:45 | NUR ---
FONDANT PUFF MAKER OPENING NOTE RECEIVED PT OBTUNDED, NON VERBAL, ON O2 VIA NC AT 2LPM NOTED WITH MODERATE AMOUNT OF SECRETION AND CONGESTED UPON AUSCULTATION, NOTED PT WITH GENERALIZED EDEMA AND SKIN TEARS PICTURES TAKEN AND PLACED ON CHART. PT ON TELEMONITORING CURRENTLY READING SR WITH PVC'S, ON NPO STATUS WITH MEDS DUE TO HIGH RISK ASPIRATION PRECAUTION, WITH FC DRAINING TO GRAVITY WITH HEMATURIA NOTED, SAFETY MEASURES IN PLACED; BED IN LOWEST AND LOCKED POSITION, ALL NEEDS ATTENDED, CALL LIGHT WITHIN EASY REACH, WILL CONTINUE TO MONITOR THROUGHOUT THE SHIFT.
[2022-08-02 20:00] VITALS: BP 97/39
--- NOTE | 2022-08-02 20:02 | NUR ---
rn closing note patient is alert,awake and oriented x1. pt is congested. pt has small amount of secretions. pt has periods of confusion. pt is on 2 l nasal cannula tolerating above 93%.pt has skin tears throughout body and sacral redness. pt has skin tears, bruises and discoloration on upper extremities. pt is on tele monitor showing sinus rhythm with pvs. pt is currently npo pending swallow eval due to high aspiration risk. pt has hematuria and small amount of urine output. all safety measures in place.bed locked at lowest position.side rails up x2
--- NOTE | 2022-08-02 20:51 | NUR ---
RN NOTE NOTED PT WITH CONGESTION, RT AT BEDSIDE, INFORMED WEEDER EUGENE NO ORDERS FOR TX AT THIS TIME. HE THEN ORDERED PRN BREATHING TX. ORDER TAKEN AND CARRIED OUT. RT MADE AWARE.
[2022-08-02] MEDS ORDERED: IPRATROPIUM NEB FS 0.5 MG/2.5 ML AMPUL.NEB NEB PRN (21:00)
[2022-08-02] MEDS ORDERED: LEVALBUTEROL HCL NEB 1.25 MG/0.5 ML VIAL.NEB NEB PRN (21:00)
--- NOTE | 2022-08-02 21:30 | NUR ---
RN NOTE DRILLING FLUIDS SPECIALIST EUGENE OMALLEY AT BEDSIDE. INFORMED PT CURRENTLY ON NPO STATUS WITH MEDS DUE TO ASPIRATION PRECAUTION; OK TO ADMINISTER LANTUS BUT HOLD COVERAGE FOR NOVOLIN, OK TO MAINTAIN PT IVF OF NS AT 60 ML/HR AT THIS TIME, AND HOLD ANTICOAGULANT DUE TO HEMATURIA. WILL CONTINUE TO MONITOR PT THROUGHOUT THE SHIFT.
[2022-08-02] MEDS: NORTRIPTYLINE HCL 10 MG CAPSULE PO SCH (21:34)
[2022-08-02] MEDS: MAGNESIUM OXIDE 400 MG TABLET PO SCH (21:34)
[2022-08-02] MEDS: SENNOSIDES 8.6 MG TABLET PO SCH (21:35)
[2022-08-03] VITALS (67 sets, daily range): BP systolic 41–175; BP diastolic 23–95
[2022-08-03] MEDS: INSULIN GLARGINE, 100 UNIT/ML CARTRIDGE SQ SCH ×2 (00:18→22:00)
[2022-08-03] MEDS: BLOOD SUGAR DIAGNOSTIC 1 EACH STRIP IN SCH ×4 (00:21→17:59)
[2022-08-03] MEDS: IV NS 0.9% 1,000 ML IV SCH (02:11)
--- NOTE | 2022-08-03 04:07 | NUR ---
RN NOTE NOTEP BP LOW AT 72/25. IMPLEMENTATION MANAGER EUGENE TRIPLETT MADE AWARE HE THEN ORDERED TO ADMINISTER 500 CC BOLUS OF NS. IF BP DOES NOT STABILIZED, TRANSFER PATIENT TO ICU FOR HIGHER LEVEL OF CARE. ORDER TAKEN AND CARRIED OUT. WILL MONITOR PT CLOSELY. CN MADE AWARE.
[2022-08-03] MEDS ORDERED: IV NS 0.9% 500 ML IV ONE ×2 (04:30→12:00)
--- NOTE | 2022-08-03 04:30 | NUR ---
RN NOTE NOTED PT STILL HYPOTENSIVE AT 75/39. PT SENT TO ICU FOR CONTINUITY OF CARE. REPORT GIVEN TO INNA WESTBOROK.
--- NOTE | 2022-08-03 04:48 | NUR ---
RN NOTES RECEIVED PATIENT FROM TELE, A 77 Y/O FEMALE PATIENT WITH DX CHF, VY WITH HX OF CHF, HTN, DM, AFIB, UTERINE CANCER. PATIENT WAS TRANSFER HERE IN ICU FOR LOW BLOOD PRESSURE. PATIENT A/O X 1. ON NASAL CANULA @ 5LPM SATING AT 94%, PATIENT WITH [place] # 20, LFA # 22, MARY LOU # 20 PERIPHERAL LINE, FLUSHED WITH NS, WITH IVF OF NS @ 60 ML/HR. V/S TAKEN AND RECORDED. PATIENT NOTED WITH SACRAL WOUND, TOOK PICTURE AND FILED IT TO PATIENT CHART. ALL SAFETY PRECAUTION PROVIDED, BED IN LOWEST POSITION, LOCKED. CALL LIGHT WITH IN REACH. CONTINUE TO MONITOR
[2022-08-03] MEDS ORDERED: NOREPINEPHRINE 8 MG in IV NS 0.9% 242 ML IV PRN (06:00)
[2022-08-03] MEDS ORDERED: NOREPINEPHRINE 8MG/250ML RTU 250 ML IV ONE (06:05)
--- NOTE | 2022-08-03 06:30 | NUR ---
RN NOTES CALLED DAUGHTER DAYLIN VALDIVIA ([phone]) REGARDING CONSENT FOR PICC LINE INSERTION, UNABLE TO REACH AT THIS TIME, LEFT MESSAGE THRU VOICEMAIL. WILL F/U
--- NOTE | 2022-08-03 07:10 | NUR ---
WOUND CARE CONSULT: PT NOT TURNED FOR FULL SKIN ASSESSMENT DUE TO PT HEMODYNAMICALLY UNSTABLE AT THIS TIME. LIMITED ASSESSMENT AT THIS TIME. PT NOTED TO HAVE DUSKY COLOR TO BILATERAL FEET AND HEELS, GENERALIZED EDEMA, DISCOLORATIONS TO UPPER EXTREMITIES WITH SKIN TEARS TO LEFT HAND AND BILATERAL ARMS, SACRAL DEEP TISSUE INJURY NOTED TO EXTEND TO BILATERAL BUTTOCKS IN ADMISSION PHOTO. RECOMMENDATIONS MADE FOR SKIN PROTECTION AND WOUND CARE. DISCUSSED WITH NURSING STAFF. DR CHATMAN TO BE CALLED THIS AM FOR SURGICAL CONSULT. [facility] AIR BED ORDERED TO ACCOMMODATE PT'S WEIGHT AND GIRTH. IN AGREEMENT WITH PLAN OF CARE.
[2022-08-03] MEDS: PANTOPRAZOLE 40 MG TABLET.DR PO SCH (07:30)
[2022-08-03] MEDS ORDERED: NOREPINEPHRINE 16 MG in IV NS 0.9% 242 ML IV PRN (08:00)
[2022-08-03] MEDS: ZINC SULFATE 220 MG CAPSULE PO SCH (09:00)
[2022-08-03] MEDS: ASCORBIC ACID 500 MG TABLET PO SCH (09:00)
[2022-08-03] MEDS: PROSOURCE / PROSTAT (PYXIS) 30 ML UDC PO SCH ×3 (09:00→17:00)
[2022-08-03] MEDS: CALCIUM CARB 250MG /VITAMIN D 1 UDTAB PO SCH (09:00)
[2022-08-03] MEDS: MULTIVIT W/MINERALS 1 TAB TABLET PO SCH (09:00)
[2022-08-03] MEDS: BACLOFEN (10 MG) 10 MG TABLET PO SCH ×3 (09:00→17:00)
[2022-08-03] MEDS: CHOLECALCIFEROL (VITAMIN D 3) 400 UNIT TABLET PO SCH (09:00)
[2022-08-03] MEDS: AMLODIPINE BESYLATE 10 MG TABLET PO SCH (09:00)
[2022-08-03] MEDS: METOPROLOL TARTRATE 25 MG TABLET PO SCH ×2 (09:00→17:00)
[2022-08-03] MEDS: NOREPINEPHRINE 32 MG in IV NS 0.9% 242 ML IV PRN ×3 (09:26→21:28)
[2022-08-03 09:27] LABS: BASOPHILS % (AUTO) 0.3 % (0.0-2.0); EOSINOPHILS % (AUTO) 0.1 % (0.0-6.0); HEMATOCRIT 32 % (33-45); HEMOGLOBIN 10.4 g/dL (11.5-14.8); LYMPHOCYTES # (AUTO) 0.8 K/uL (0.8-4.8); LYMPHOCYTES % (AUTO) 6.6 % (20.0-44.0); MEAN CORPUSCULAR HGB CONC 32 g/dl (31.0-36.0); MEAN CORPUSCULAR VOLUME 89 fL (82-100); MONOCYTES # (AUTO) 0.4 K/uL (0.1-1.30); MONOCYTES % (AUTO) 3.3 % (2.0-12.0); NEUTROPHILS # (AUTO) 11.4 K/uL (1.8-8.9); NEUTROPHILS % (AUTO) 89.7 % (43.0-81.0); PLATELET COUNT (AUTO) 301 K/uL (150-450); RED BLOOD CELL COUNT(AUTO) 3.64 MIL/uL (4.0-5.2); WHITE BLOOD COUNT (AUTO) 12.8 K/uL (4.3-11.0)
[2022-08-03 09:47] LABS: CARBON DIOXIDE 20 mmol/L (21-32); CHLORIDE 102 mmol/L (98-107); GLUCOSE 171 mg/dL (74-106); MAGNESIUM 1.9 mg/dL (1.8-2.4); PHOSPHORUS 3.8 mg/dL (2.5-4.9); POTASSIUM 3.1 mmol/L (3.5-5.1); SODIUM SERUM 139 mmol/L (136-145); UREA NITROGEN, BLOOD 48 mg/dL (7-18)
[2022-08-03] MEDS: MEROPENEM 500 MG in IV NS 0.9% 100 ML IV SCH ×2 (09:51→20:48)
[2022-08-03] MEDS: LIDOCAINE 5% (PATCH) 1 EA PATCH TP SCH (09:52)
[2022-08-03] MEDS: Z GUARD REMEDY 4 OZ OINT TP PRN (09:52)
[2022-08-03] MEDS ORDERED: IV NS 0.9% 1,000 ML IV PRN (10:00)
[2022-08-03] MEDS: PHENYLEPHRINE 100 MG in IV NS 0.9% 240 ML IV PRN ×2 (15:42→23:49)
[2022-08-03 16:17] LABS: ABG BASE EXCESS -27.8 mmol/L; ABG OXYGEN SATURATION 87.7 % (92.0-98.5); ABG PCO2 33.4 mmHg (35.0-45.0); ABG PH 6.822 (7.350-7.450); ABG PO2 90.2 mmHg (75.0-100.0); AaDO2 156.6 mmHg; COHb 0.2 % (0.5-1.5); MetHb 0.2 % (0.0-1.5); O2Hb 87.3 % (94.0-97.0); SITE, ABG Right Radial
[2022-08-03 16:27] LABS: BAND % (MANUAL) 9 % (0.0-5.0); BASOPHILS % (MANUAL) 0 % (0.0-2.0); EOSINOPHILS % (MANUAL) 0 % (0-4); LYMPHOCYTES % (MANUAL) 7 % (16-48); MONOCYTES % (MANUAL) 3 % (0-11.0); NEUTROPHILS % (MANUAL) 81 (42-76)
[2022-08-03] MEDS ORDERED: SODIUM BICARBONATE SYR 50 MEQ/50 ML DISP.SYRIN IV ONE (16:30)
[2022-08-03] MEDS ORDERED: Sodium Bicarbonate 150 MEQ in IV D5W 1,000 ML IV SCH (16:30)
[2022-08-03] MEDS ORDERED: SODIUM BICARBONATE SYR 50 MEQ/50 ML DISP.SYRIN ONE (16:44)
--- NOTE | 2022-08-03 17:00 | NUR ---
Critical ABG resulted. Dr Chavez and Dr Encarnacion notified. Stat intubation. Rt Femoral Line inserted. Pt received 3 amps of Na Bicarb, D5w with 3amp Na Bicarb. sedation initiated as ordered
[2022-08-03] MEDS ORDERED: PROPOFOL 100 ML IV PRN (17:30)
[2022-08-03 17:53] LABS: ABG OXYGEN SATURATION 98.2 % (92.0-98.5); ABG PCO2 91.9 mmHg (35.0-45.0); ABG PH 7.702 (7.350-7.450); ABG PO2 301.4 mmHg (75.0-100.0); AaDO2 319.7 mmHg; COHb 0.2 % (0.5-1.5); MetHb 0.8 % (0.0-1.5); O2Hb 97.2 % (94.0-97.0); SITE, ABG A-Line; VENT MODE, BG AC 28 500 100% +5
[2022-08-03] MEDS: Z GUARD REMEDY 4 OZ OINT TP SCH (18:38)
[2022-08-03] MEDS ORDERED: GLUCERNA 1.2 1,000 ML BOTTLE NG PRN (19:30)
--- NOTE | 2022-08-03 19:30 | NUR ---
MAINTENANCE PLANNER SHIFT SUMMARY: RECEIVED PT, NON-VERBAL, ONLY OPENS EYES TO NAME AND TACTILE STIMULI IN AM. NOW SEDATED AND INTUBATED WITH PROPOFOL DRIP. WAS ON 5L, NASAL CANNULA IN AM. WICK TENDER READS NSR IN THE MORNING, NOW AT SINUS TACH. GENERALIZED SKIN TEARS ALL OVER THE BODY WITH SACRAL REDNESS, WOUND PROTECTION/TREATMENT MEASURES DONE ORDERED. IV ACCESS ON [place] #20G, SALINE LOCKED; MARY LOU #20G, SALINE LOCKED; L FA #22G WITH NS @ 60ML/HR AND LEVO @ 0.5 MCG/KG/MIN IN AM. NOW, ONLY IV ACCESS IS R FEMORAL TRIPLE LUMEN CENTRAL LINE. ALL OTHER LINES WERE REMOVED. ALL PO MEDS WERE HELD DUE TO HEMODYNAMIC INSTABILITY ALL THROUGHOUT SHIFT. NO INSULIN COVERAGE DUE TO NPO STATUS. HOSPITALIST AWARE. NIBP NOT READING CORRECTLY DUE TO PITTING EDEMA ON ALL EXTREMITIES. MANUAL BP DONE Q15 MIN. WAITED FOR ART LINE TO GET A MORE ACCURATE BP READING TILL ABOUT 1300. STARTED ON JEMAL ON TOP OF LEVO. PT. EVENTUALLY DESATURATED AND NEEDED TO BE INTUBATED AT 1645. CURRENT SETTINGS ARE: ETT: 7.5/22; AC - 28; VT - 500; FIO2 - 45%; PEEP - 5. BOTH LEVO AND JEMAL DRIPS MAXED NOW AND BP STILL NOT AT STABLE LEVEL. ENDORSED CONTINUITY OF CARE TO ORACLE IAM CONSULTANT RN.
[2022-08-03] MEDS: VASOPRESSIN INJ 40 UNIT in IV NS 0.9% 38 ML IV PRN (19:48)
--- NOTE | 2022-08-03 20:00 | NUR ---
TRANSCRIPTION COORDINATOR. INITIAL ASSESSMENT. RECEIVED THE PT REST IN BED. ORALLY INTUBATED. RECEIVED THE PT PROPOFOL RUNNING. PT HAS NO GAG ,NO COUGH REFLEX. STOPPED THE PROPOFOL.REMOVED THE KELLY SOFT WRIST RESTRAINT. PUPIL 4MM DILATED. NO REACTING. SPECIAL EDUCATION TEACHERS SHOWING S TACH. LT NARE NGT INTACT. CLAMPED. NPO, ABG DONE. ABNORMAL RESULT NOTIFIED TELECOMMUNICATION ENGINEER AIR QUALITY MANAGER EUGENE. BICARB DRIP STARTED. FC PATENT. HEMATURIA. IV RT FEMORAL TLC, BICARB DRIP 125 ML/H. VASO, LEVO MAX OUT. EPI DRIP STARTED. NOTIFIED PT DAUGHTER. NOW PT DNR.. PT IS CRITICAL. KELLY LOWER AND UPPER EXTREMITY BRUISE. SAT NOT SHOWING . PT IS VERY UNSTABLE. WILL CONTINUE TO MONITOR VITALS.
[2022-08-03 20:10] LABS: ABG BASE EXCESS -28.9 mmol/L; ABG PCO2 19.2 mmHg (35.0-45.0); ABG PH 6.843 (7.350-7.450); ABG PO2 85.5 mmHg (75.0-100.0); COHb 0.2 % (0.5-1.5); MetHb 0.6 % (0.0-1.5); O2Hb 86.1 % (94.0-97.0); PEEP,BG 5 cm H2O; SITE, ABG A-Line; VENT MODE, BG AC 28 500 45% +5; VT, ABG 450 mL
--- NOTE | 2022-08-03 20:14 | NUR ---
ABG DONE. RN NOTIFIED WITH THE RESULT.
[2022-08-03] MEDS ORDERED: Sodium Bicarbonate 150 MEQ in IV D5W 1,000 ML IV PRN (20:30)
[2022-08-03] MEDS: Sodium Bicarbonate 150 MEQ in IV D5W 1,000 ML IV PRN (20:30)
--- NOTE | 2022-08-03 20:34 | NUR ---
SPUTUM SAMPLE COLLECTED.
[2022-08-03] MEDS: EPINEPHRINE (1:1000) 10 MG in IV NS 0.9% 240 ML IV PRN (21:06)
--- NOTE | 2022-08-03 21:13 | NUR ---
PEEP TURNED OFF PER DIAGNOSTIC SALES SPECIALIST TRIPLETT DUE TO LOW BP
[2022-08-03] MEDS: SENNOSIDES 8.6 MG TABLET PO SCH (21:53)
[2022-08-03] MEDS: NORTRIPTYLINE HCL 10 MG CAPSULE PO SCH (21:53)
[2022-08-03] MEDS: MAGNESIUM OXIDE 400 MG TABLET PO SCH (21:56)
[2022-08-03] MEDS: DEXTROSE 50%-WATER 50 ML DISP.SYRIN IV PRN (23:36)
--- NOTE | 2022-08-03 23:40 | NUR ---
icu clerk. clyde not given. blood sugar is 59
[2022-08-04] VITALS (13 sets, daily range): BP systolic 85–114; BP diastolic 40–60
[2022-08-04] MEDS: BLOOD SUGAR DIAGNOSTIC 1 EACH STRIP IN SCH ×3 (01:13→11:28)
[2022-08-04] MEDS: NOREPINEPHRINE 32 MG in IV NS 0.9% 242 ML IV PRN ×2 (02:03→06:44)
[2022-08-04 04:08] LABS: BASOPHILS % (AUTO) 0.3 % (0.0-2.0); EOSINOPHILS % (AUTO) 0.4 % (0.0-6.0); HEMATOCRIT 24 % (33-45); HEMOGLOBIN 7.3 g/dL (11.5-14.8); LYMPHOCYTES % (AUTO) 18.8 % (20.0-44.0); MEAN CORPUSCULAR HGB CONC 30 g/dl (31.0-36.0); MEAN CORPUSCULAR VOLUME 98 fL (82-100); MONOCYTES # (AUTO) 0.1 K/uL (0.1-1.30); MONOCYTES % (AUTO) 2.8 % (2.0-12.0); NEUTROPHILS # (AUTO) 4.1 K/uL (1.8-8.9); NEUTROPHILS % (AUTO) 77.7 % (43.0-81.0); PLATELET COUNT (AUTO) 112 K/uL (150-450); RED BLOOD CELL COUNT(AUTO) 2.47 MIL/uL (4.0-5.2); WHITE BLOOD COUNT (AUTO) 5.3 K/uL (4.3-11.0)
[2022-08-04] MEDS: EPINEPHRINE (1:1000) 10 MG in IV NS 0.9% 240 ML IV PRN ×2 (04:25→08:57)
[2022-08-04 04:29] LABS: CALCIUM, SERUM 7.2 mg/dL (8.5-10.1); CHLORIDE 106 mmol/L (98-107); CREATININE 3.1 mg/dL (0.6-1.3); GLUCOSE 265 mg/dL (74-106); MAGNESIUM 2.3 mg/dL (1.8-2.4); POTASSIUM 4.8 mmol/L (3.5-5.1); SODIUM SERUM 145 mmol/L (136-145); UREA NITROGEN, BLOOD 49 mg/dL (7-18)
[2022-08-04] MEDS: Sodium Bicarbonate 150 MEQ in IV D5W 1,000 ML IV PRN (04:38)
[2022-08-04 04:41] LABS: CARBON DIOXIDE 6 mmol/L (21-32); PHOSPHORUS 10.6 mg/dL (2.5-4.9)
[2022-08-04] MEDS ORDERED: PHENYLEPHRINE 10 MG/ML VIAL ONE (05:14)
[2022-08-04] MEDS ORDERED: VASOPRESSIN INJ 20 UNIT/ML VIAL ONE (05:22)
[2022-08-04 06:07] LABS: BAND % (MANUAL) 2 % (0.0-5.0); BASOPHILS % (MANUAL) 0 % (0.0-2.0); EOSINOPHILS % (MANUAL) 0 % (0-4); LYMPHOCYTES % (MANUAL) 28 % (16-48); MONOCYTES % (MANUAL) 21 % (0-11.0); NEUTROPHILS % (MANUAL) 49 (42-76)
[2022-08-04] MEDS: VASOPRESSIN INJ 40 UNIT in IV NS 0.9% 38 ML IV PRN (06:22)
[2022-08-04] MEDS: INSULIN REGULAR, HUMAN 100 UNIT/ML 3 ML VIAL SQ PRN (06:43)
[2022-08-04 07:19] LABS: ABG OXYGEN SATURATION 93.4 % (92.0-98.5); ABG PCO2 15.6 mmHg (35.0-45.0); ABG PH 6.927 (7.350-7.450); ABG PO2 99.5 mmHg (75.0-100.0); AaDO2 203.6 mmHg; COHb 0.3 % (0.5-1.5); MetHb 0.5 % (0.0-1.5); O2Hb 92.7 % (94.0-97.0); PEEP,BG 0 cm H2O; VT, ABG 500 mL
--- NOTE | 2022-08-04 07:22 | NUR ---
rn neonatal icu. am care given. remaining same vent settings on.rn cardiac showing nsr. levo max, gela max, vaso max, epi drip 0.5, bicarb drip 125 ml/h. hob elevated. ngt clamped. fc patent. pt is unstable. abg done. notified md gil, multiple skin tear. dressing done.
[2022-08-04] MEDS: PANTOPRAZOLE 40 MG TABLET.DR PO SCH (07:30)
[2022-08-04] MEDS ORDERED: SODIUM BICARBONATE SYR 50 MEQ/50 ML DISP.SYRIN IV ONE (07:30)
--- NOTE | 2022-08-04 07:32 | NUR ---
RN NOTE RECEIVED ORDER FROM DR BROWNE REGARDING ABGS. 2 AMP OF BICARB. ORDERS PLACED
--- NOTE | 2022-08-04 07:33 | NUR ---
RN NOTE INITIAL ASSESSMENT. RECEIVED THE PT REST IN BED. ORALLY INTUBATED. PT HAS NO GAG ,NO COUGH REFLEX. PUPIL 4MM DILATED. NO REACTING. CONTROL ENGINEER SHOWING S TACH. LT NARE NGT INTACT. CLAMPED. NPO, ABG DONE. FC PATENT. IV RT FEMORAL TLC, BICARB DRIP 125 ML/H. VASO, LEVO MAX OUT. EPI DRIP STARTED.PT IS CRITICAL. KELLY LOWER AND UPPER EXTREMITY BRUISE. SAT NOT SHOWING . PT IS VERY UNSTABLE.
[2022-08-04] MEDS: MEROPENEM 500 MG in IV NS 0.9% 100 ML IV SCH (08:11)
[2022-08-04] MEDS: Z GUARD REMEDY 4 OZ OINT TP PRN (08:14)
[2022-08-04] MEDS: BACLOFEN (10 MG) 10 MG TABLET PO SCH ×2 (08:59→13:00)
[2022-08-04] MEDS: METOPROLOL TARTRATE 25 MG TABLET PO SCH (08:59)
[2022-08-04] MEDS: MULTIVIT W/MINERALS 1 TAB TABLET PO SCH (09:00)
[2022-08-04] MEDS: CHOLECALCIFEROL (VITAMIN D 3) 400 UNIT TABLET PO SCH (09:00)
[2022-08-04] MEDS: PROSOURCE / PROSTAT (PYXIS) 30 ML UDC PO SCH ×2 (09:00→13:00)
[2022-08-04] MEDS: CALCIUM CARB 250MG /VITAMIN D 1 UDTAB PO SCH (09:00)
[2022-08-04] MEDS: ZINC SULFATE 220 MG CAPSULE PO SCH (09:00)
[2022-08-04] MEDS: AMLODIPINE BESYLATE 10 MG TABLET PO SCH (09:00)
[2022-08-04] MEDS: LIDOCAINE 5% (PATCH) 1 EA PATCH TP SCH (09:00)
[2022-08-04] MEDS: ASCORBIC ACID 500 MG TABLET PO SCH (09:00)
[2022-08-04] MEDS ORDERED: VITAMINS A AND D 56.7 GM TUBE TP SCH (09:00)
[2022-08-04] MEDS: Z GUARD REMEDY 4 OZ OINT TP SCH (09:01)
[2022-08-04] MEDS: PHENYLEPHRINE 100 MG in IV NS 0.9% 240 ML IV PRN (10:01)
[2022-08-04] MEDS ORDERED: ETOMIDATE 2 MG/ML VIAL IV ONE (10:10)
[2022-08-04] MEDS ORDERED: ROCURONIUM BROMIDE 50 MG/5 ML IV ONE (10:11)
[2022-08-04] MEDS: DEXTROSE 50%-WATER 50 ML DISP.SYRIN IV PRN ×2 (11:26→11:50)
--- NOTE | 2022-08-04 11:28 | NUR ---
RN NOTE BLOOD SUGAR CHECK LEVEL [address] KHANG BUTT TO GIVE DEXTROSE.
--- NOTE | 2022-08-04 11:29 | NUR ---
RN NOTE HAND OFF REPORT GIVEN TO JUAN WESTBROOK.
[2022-08-04] MEDS ORDERED: VANCOMYCIN 1.25 GM in IV D5W 250 ML IV SCH (12:00)
[2022-08-04] MEDS ORDERED: NOREPINEPHRINE 32 MG in IV NS 0.9% 218 ML IV PRN (12:00)
[2022-08-04] MEDS ORDERED: Sodium Bicarbonate 150 MEQ in IV D5W 1,000 ML IV SCH (14:00)
--- NOTE | 2022-08-04 14:09 | NUR ---
RN NOTE PATIENT MAXED ON EPINEPHRINE, NEOSYNEPHRINE, LEVOPHED, VASOPRESSIN. INFORMED CHARGE NURSE
--- NOTE | 2022-08-04 14:09 | NUR ---
NOTED ASYSTOLE ON MONITOR. PATIENT EXAMINED -PUPILS FIXED AND DILATED. NO PALPABLE PULSES. NO HEART TONE. MAX OUT ON 4 PRESSORS. PATIENT DNR. PRONOUNCED.
--- NOTE | 2022-08-04 14:15 | NUR ---
RN NOTE CALLED DAUGHTER DAYLIN, INFORMED HER OF HER MOTHERS PASSING AT 1409. NO MORTUARY AGREEMENTS HAVE BEEN MADE. DAUGHTER IS AWARE BODY WILL BE TAKEN TO [facility].
--- NOTE | 2022-08-04 14:31 | NUR ---
RN NOTE SPOKE TO ONE LEGACY SELF PAY REPRESENTATIVE ROBINSON BODY WAS RELEASED ID NUMBER [id number]
== END 2022-08-04 14:09 | DRG 871 ==
LOC: ER 16:45 → TRANSITION 08-02 00:16 → TELE1 08-02 08:00 → ICU 08-03 04:52
PROVIDERS: ADMIT Nurse Practitioner Acute Care; ATTEND Registered Nurse
PROC: 5A1935Z Respiratory Ventilation, Less than 24 Consecutive Hours (ICD-10-PCS; principal; 2022-08-03)
PROC: 0BH17EZ Insertion of Endotracheal Airway into Trachea, Via Natural or Artificial Opening (ICD-10-PCS; 2022-08-03)
PROC: 03H533Z Insertion of Infusion Device into Right Axillary Artery, Percutaneous Approach (ICD-10-PCS; 2022-08-03)
PROC: 06HM33Z Insertion of Infusion Device into Right Femoral Vein, Percutaneous Approach (ICD-10-PCS; 2022-08-03)
PROC: B54BZZA Ultrasonography of Right Lower Extremity Veins, Guidance (ICD-10-PCS; 2022-08-03)
PROC: 05HC33Z Insertion of Infusion Device into Left Basilic Vein, Percutaneous Approach (ICD-10-PCS; 2022-08-03)
DX: A41.9 Sepsis, unspecified organism (principal); E43 Unspecified severe protein-calorie malnutrition; I50.23 Acute on chronic systolic (congestive) heart failure; N17.0 Acute kidney failure with tubular necrosis; R65.21 Severe sepsis with septic shock; J96.01 Acute respiratory failure with hypoxia; G92.8 Other toxic encephalopathy; N39.0 Urinary tract infection, site not specified; D68.59 Other primary thrombophilia; E87.4 Mixed disorder of acid-base balance; Z20.822 Contact with and (suspected) exposure to COVID-19; E11.51 Type 2 diabetes mellitus with diabetic peripheral angiopathy without gangrene; I11.0 Hypertensive heart disease with heart failure; I48.91 Unspecified atrial fibrillation; G89.29 Other chronic pain; Z85.42 Personal history of malignant neoplasm of other parts of uterus; Z87.440 Personal history of urinary (tract) infections; Z79.4 Long term (current) use of insulin; Z66 Do not resuscitate; Z88.1 Allergy status to other antibiotic agents; Z91.040 Latex allergy status; Z88.2 Allergy status to sulfonamides; Z88.8 Allergy status to other drugs, medicaments and biological substances; Z91.048 Other nonmedicinal substance allergy status; Z79.899 Other long term (current) drug therapy; E66.01 Morbid (severe) obesity due to excess calories; E87.6 Hypokalemia; I25.10 Atherosclerotic heart disease of native coronary artery without angina pectoris; E88.09 Other disorders of plasma-protein metabolism, not elsewhere classified; G47.33 Obstructive sleep apnea (adult) (pediatric); L85.3 Xerosis cutis; L89.156 Pressure-induced deep tissue damage of sacral region
CPT/HCPCS: 31720; 36415; 36600; 71045-TC; 76770-TC; 80048-TC; 80061-TC; 80076-TC; 81001; 82803-TC; 82962-TC; 83605-TC; 83735-TC; 83880; 84100-TC; 84484-TC; 85025-TC; 87040-TC; 87070-TC; 87081-TC; 87086-TC; 93307-TC; 94002-TC; 94003-TC; 94762-TC; 94799-TC; A4349; C9803; G0378; J0171; J1644; J1815; J1940; J2185; J2270; J2370; J2405; J3370; J3480; J3490; J7030; J7040; J7042; J7050; J7060; J7070; U0003